=== PATIENT | female | born 1990 | race Caucasian/White ===

== ENCOUNTER → 2016-11-05 | Outpatient (CLI) | payer BC | END | disposition home or self-care (01) | LOC: C.PATHSPEC 11:44 | PROVIDERS: ATTEND Dentist Oral and Maxillofacial Surgery | DX: K09.0 Developmental odontogenic cysts (principal) ==

== ENCOUNTER → 2016-12-10 | Outpatient (CLI) | payer BC ==
[2016-12-10 18:25] LABS: URINE APPEARANCE TURBID (CLEAR); URINE BILIRUBIN NEG (NEG); URINE COLOR YELLOW; URINE EPITHELIAL CELL AUTO >30 /lpf (0-5); URINE NITRITE NEG (NEG); URINE PH 7.5 (4.5-7.5); UROBILINOGEN NEG (NEG)
[2016-12-10 18:31] LABS: MANUAL MICROSCOPIC REQUIRED? NO; REVIEW REQ? NO
== END | disposition home or self-care (01) ==
LOC: C.LABSPEC 17:42
PROVIDERS: ATTEND Obstetrics & Gynecology
DX: Z34.01 Encounter for supervision of normal first pregnancy, first trimester (principal)

== ENCOUNTER → 2016-12-14 | Outpatient (CLI) | payer BC ==
[2016-12-14 17:31] LABS: BASO % 0.2 %; BASO ABS # 0.02 K/uL (0-0.2); COMPLETE YES; EOS % 1.9 %; HEMATOCRIT 40.8 % (37-47); IG% 0.2 %; LYMPH % 32.2 %; LYMPH ABS # 3.41 K/uL (1.2-3.4); MEAN CELL VOLUME 87.9 fL (80-100); MEAN CORPUSCULAR HGB CONC 34.1 g/dl (32-36); MEAN PLATELET VOLUME 9.7 fL (7.4-10.4); MONO % 6.3 %; NEUT % 59.2 %; PLATELET COUNT 229 K/uL (130-400); RED BLOOD COUNT 4.64 M/uL (4.2-5.4); WHITE BLOOD COUNT 10.59 K/uL (4.8-10.8)
[2016-12-17 00:58] LABS: CHLAMYDIA TRACH RNA*** NOT DETECTED (NOT DETECTED); GC (NEIS GONORRHOEAE)RNA** NOT DETECTED (NOT DETECTED)
== END | disposition home or self-care (01) ==
LOC: C.LAB1850 16:07
PROVIDERS: ATTEND Obstetrics & Gynecology
DX: Z34.01 Encounter for supervision of normal first pregnancy, first trimester (principal)

== ENCOUNTER → 2017-01-11 | Outpatient (CLI) | payer BC ==
[2017-01-11 17:59] LABS: GTGD 50 Grams
== END | disposition home or self-care (01) ==
LOC: C.LAB1850 16:56
PROVIDERS: ATTEND Obstetrics & Gynecology
DX: Z34.01 Encounter for supervision of normal first pregnancy, first trimester (principal)

== ENCOUNTER → 2017-04-05 | Outpatient (CLI) | payer BC, OTHER ==
[2017-04-05 15:30] LABS: GTGD 50 Grams
[2017-04-05 15:38] LABS: HEMATOCRIT 35.7 % (37-47)
[2017-04-05 16:03] LABS: URINE APPEARANCE CLEAR (CLEAR); URINE BILIRUBIN NEG (NEG); URINE COLOR YELLOW; URINE EPITHELIAL CELL AUTO 20-30 /lpf (0-5); URINE NITRITE NEG (NEG); URINE PH 6.5 (4.5-7.5); UROBILINOGEN NEG (NEG)
[2017-04-05 16:12] LABS: MANUAL MICROSCOPIC REQUIRED? NO; REVIEW REQ? NO
== END | disposition home or self-care (01) ==
LOC: C.LAB1850 14:36
PROVIDERS: ATTEND Obstetrics & Gynecology
DX: Z34.03 Encounter for supervision of normal first pregnancy, third trimester (principal)

== ENCOUNTER → 2017-04-15 | Outpatient (CLI) | payer BC, OTHER | END | disposition home or self-care (01) | LOC: C.LAB 07:47 | PROVIDERS: ATTEND Obstetrics & Gynecology | DX: O28.1 Abnormal biochemical finding on antenatal screening of mother (principal) ==

== ENCOUNTER → 2017-04-22 | Outpatient (CLI) | payer BC, OTHER | END | disposition home or self-care (01) | LOC: C.LAB1850 13:21 | PROVIDERS: ATTEND Obstetrics & Gynecology | DX: O28.1 Abnormal biochemical finding on antenatal screening of mother (principal); Z3A.00 Weeks of gestation of pregnancy not specified ==

== ENCOUNTER → 2017-05-19 | Outpatient (CLI) | payer BC, OTHER ==
[2017-05-19 17:20] LABS: BASO % 0.1 %; BASO ABS # 0.01 K/uL (0-0.2); COMPLETE YES; EOS % 0.9 %; HEMATOCRIT 38.1 % (37-47); IG% 0.6 %; LYMPH % 27.4 %; LYMPH ABS # 3.45 K/uL (1.2-3.4); MEAN CELL VOLUME 90.5 fL (80-100); MEAN CORPUSCULAR HEMOGLOBIN 30.6 pg (25-34); MEAN CORPUSCULAR HGB CONC 33.9 g/dl (32-36); MEAN PLATELET VOLUME 9.8 fL (7.4-10.4); MONO % 9.4 %; NEUT % 61.6 %; PLATELET COUNT 217 K/uL (130-400); RED BLOOD COUNT 4.21 M/uL (4.2-5.4); WHITE BLOOD COUNT 12.57 K/uL (4.8-10.8)
[2017-05-19 17:39] LABS: ALT/SGPT 21 U/L (12-78); BLOOD UREA NITROGEN 8 mg/dl (7-18); BUN/CREATININE RATIO 11.9 (10-20); CALCIUM 9.3 mg/dl (8.5-10.1); CARBON DIOXIDE 25 mmol/L (21-32); CHLORIDE 105 mmol/L (98-107); CREATININE 0.65 mg/dl (0.60-1.20); GLUCOSE 72 mg/dl (70-99); POTASSIUM 3.6 mmol/L (3.5-5.1); SODIUM 137 mmol/L (136-145)
[2017-05-19 17:42] LABS: ALB/GLOB RATIO 0.7 (0.9-2); ALKALINE PHOSPHATASE 121 U/L (45-117); AST/SGOT 17 U/L (15-37)
== END | disposition home or self-care (01) ==
LOC: C.LAB1850 16:23
PROVIDERS: ATTEND Obstetrics & Gynecology
DX: O16.3 Unspecified maternal hypertension, third trimester (principal); Z3A.00 Weeks of gestation of pregnancy not specified

== ENCOUNTER → 2017-05-21 | Outpatient (CLI) | payer BC, OTHER ==
[~2017-05-21] MED LIST: PRENTAB26 PO
== END | disposition home or self-care (01) ==
LOC: C.LAB 08:51
PROVIDERS: ATTEND Obstetrics & Gynecology
DX: O16.3 Unspecified maternal hypertension, third trimester (principal)

== ENCOUNTER → 2017-05-24 | Outpatient (CLI) | payer BC, OTHER ==
[2017-05-24 13:36] LABS: ALBUMIN 2.8 gm/dl (3.4-5.0); ALT/SGPT 20 U/L (12-78); AST/SGOT 17 U/L (15-37); CREATININE 0.66 mg/dl (0.60-1.20); URIC ACID 4.3 mg/dl (2.6-7.2)
[2017-05-24 13:39] LABS: ALKALINE PHOSPHATASE 130 U/L (45-117); TOTAL PROTEIN 7.1 gm/dl (6.4-8.2)
== END | disposition home or self-care (01) ==
LOC: C.LAB1850 11:43
PROVIDERS: ATTEND Obstetrics & Gynecology
DX: O13.3 Gestational [pregnancy-induced] hypertension without significant proteinuria, third trimester (principal)

== ENCOUNTER → 2017-05-31 | Outpatient (CLI) | payer BC, OTHER ==
[2017-05-31 12:18] LABS: HEMOGLOBIN 12.8 g/dL (12.0-16.0); MEAN CELL VOLUME 90.3 fL (80-100); MEAN CORPUSCULAR HEMOGLOBIN 30.4 pg (25-34); MEAN CORPUSCULAR HGB CONC 33.7 g/dl (32-36); MEAN PLATELET VOLUME 10.2 fL (7.4-10.4); PLATELET COUNT 179 K/uL (130-400); RED CELL DISTRIBUTION WIDTH CV 13.2 % (11.5-14.5); RED CELL DISTRIBUTION WIDTH SD 42.9 fL (36.4-46.3); WHITE BLOOD COUNT 10.99 K/uL (4.8-10.8)
[2017-05-31 16:36] LABS: ALBUMIN 2.8 gm/dl (3.4-5.0); ALT/SGPT 19 U/L (12-78); BLOOD UREA NITROGEN 8 mg/dl (7-18); CARBON DIOXIDE 24 mmol/L (21-32); CREATININE 0.68 mg/dl (0.60-1.20); GLUCOSE 67 mg/dl (70-99); POTASSIUM 3.7 mmol/L (3.5-5.1); SODIUM 137 mmol/L (136-145)
[2017-05-31 16:39] LABS: ALKALINE PHOSPHATASE 127 U/L (45-117); AST/SGOT 17 U/L (15-37); TOTAL PROTEIN 6.9 gm/dl (6.4-8.2)
== END | disposition home or self-care (01) ==
LOC: C.LAB1850 11:05
PROVIDERS: ATTEND Obstetrics & Gynecology
DX: O13.3 Gestational [pregnancy-induced] hypertension without significant proteinuria, third trimester (principal)

== ENCOUNTER 2017-06-08 08:21 | Inpatient (IN) | payer BC, OTHER ==
[~2017-06-08] VITALS: Ht 167.6 cm; Wt 79.5 kg
[2017-06-08] MEDS ORDERED: PRENTAB26 PO (08:29)
[2017-06-08 08:33] VITALS: Ht 167.6 cm; Wt 79.5 kg
[2017-06-08] MEDS ORDERED: LACTATED RINGER'S 1000ML 1,000 ML IV SCH ×2 (08:47→13:45)
[2017-06-08] MEDS ORDERED: LACTATED RINGER'S 1000ML 1,000 ML IV PRN (08:47)
[2017-06-08] MEDS ORDERED: LACTATED RINGER'S 1000ML 500 ML IV PRN (08:52)
[2017-06-08] MEDS ORDERED: OXYTOCIN 30 UNITS/500ML NSS IV PRN ×2 (09:00→13:45)
[2017-06-08 09:17] LABS: HEMATOCRIT 37.9 % (37-47); HEMOGLOBIN 12.9 g/dL (12.0-16.0); MEAN CELL VOLUME 90.2 fL (80-100); MEAN CORPUSCULAR HEMOGLOBIN 30.7 pg (25-34); MEAN PLATELET VOLUME 9.8 fL (7.4-10.4); PLATELET COUNT 183 K/uL (130-400); RED CELL DISTRIBUTION WIDTH CV 13.4 % (11.5-14.5); RED CELL DISTRIBUTION WIDTH SD 43.8 fL (36.4-46.3); WHITE BLOOD COUNT 11.95 K/uL (4.8-10.8)
--- NOTE | 2017-06-08 13:41 | Vaginal Delivery Summary ---
Vaginal Delivery Summary Lisa became fully dilated with an urge to push and was coached through her second stage. I was called to deliver when the head began . Lisa was prepped for delivery and through the next few pushes she delivered the head in DOA position, followed rapidly by the shoulders and the remainder of the infant. A vigorous male was placed on the maternal abdomen, cord was doubly clamped and cut by the FOB. Placenta delivered spontaneously and was intact with a 3VC. First degree perineal laceration was repaired with 1% plain lidocaine and 3-0 vicryl in a running locked manner.
[2017-06-08] MEDS ORDERED: HYDROCORTISONE ACETATE 25 MG SUPP PR PRN (13:45)
[2017-06-08] MEDS ORDERED: MEASLES, MUMPS & RUBELLA VIRUS VIAL SQ. ONE (13:45)
[2017-06-08] MEDS ORDERED: ACETAMINOPHEN 325 MG TAB PO PRN (13:45)
[2017-06-08] MEDS ORDERED: BENZOCAINE 20% AER SPR 82.5 GM CAN EXT PRN (13:45)
[2017-06-08] MEDS ORDERED: DIPHTHERIA/TETANUS/PERTUSSIS 0.5 ML SYR/VIAL IM. ONE (13:45)
[2017-06-08] MEDS ORDERED: OXYCODONE/ACETAMINOPHEN 5-325 TAB PO PRN (13:45)
[2017-06-08] MEDS ORDERED: LANOLIN OINT EXT PRN (13:45)
[2017-06-08] MEDS ORDERED: SUPERCREAM 0.870 % 15GM JAR EXT PRN (13:45)
[2017-06-08] MEDS ORDERED: IBUPROFEN 600 MG TAB PO PRN (13:45)
--- NOTE | 2017-06-08 13:49 | Medical Student: [facility] ---
Medical Student Delivery Note Lisa Kennedy is a 26 yo white female now 1 with EDC of 06/29/2017 as estimated by US. She was schedule for induction at 37 weeks for gestational hypertension, with weekly labs/NSTs starting at 35 weeks. Her labs showed blood type O+, rubella immune, HepB negative, declined genetic testing, negative GBS titer, normal glucose screen at 28 weeks (154). Patient was a planned induction for today with pitocin (9). She pushed for approximately 10 minutes, delivering a viable male infant occiput anterior position at 1323 over intact perineum. Infant placed on the mother's abdomen for drying and attention. Umbilical cord was clamped in 2 places and cut. Cord blood sample was obtained. Placenta was delivered spontaneously and intact. Perineum inspection showed a 2 cm first degree midline posterior laceration, which was stitched closed with 3-0 Vicryl. EBL was 300ml. Sponge , instrument, and needle count was correct x2. Vigorous male infant's Apgars were 10 (1 minute) and 10 (5 minute); weight is pending. Mother and baby are doing well and recovering together.
[2017-06-08 16:30] VITALS: BP 114/73; PULSE 93; TEMP 37; O2SAT 96
[2017-06-08 19:15] VITALS: BP 132/84; PULSE 90; TEMP 36.8; O2SAT 97
[2017-06-08] MEDS: DOCUSATE SODIUM 100 MG CAP PO SCH (20:08)
[2017-06-09 00:50] VITALS: BP 132/84; PULSE 75; TEMP 36.5
[2017-06-09 05:25] VITALS: BP 120/78; PULSE 80; TEMP 36.8
--- NOTE | 2017-06-09 06:08 | Medical Student: [facility] ---
Med Student BUSINESS SALES CONSULTANT Progress Nt Date of Service Jun 09, 2017. Subjective conversation w/ patient, physical exam Ambulation: ambulating normally Voiding: no voiding problems Passing Gas: Yes Diet Tolerance: Regular Diet Lochia: Moderate Feeding Type: Breast Feeding Pain: minimal, no pain meds Notes: Doing well, requests for help with latch/breast feeding. She reports she is hand expressing, but baby only tries to suck 2x then falls asleep. Review of Systems Constitutional: No fever, No chills Respiratory: No cough, No shortness of breath Cardiac: No chest pain, No edema, No palpitations Abdomen: No nausea, No vomiting, No diarrhea Female : No dysuria No blurry vision, headache, or RUQ pain Objective Vital Signs Date Time Temp Pulse Resp B/P (MAP) Pulse Ox O2 Delivery O2 Flow Rate FiO2 06/09/17 05:25 36.8 80 16 120/78 (92) Room Air 06/09/17 00:50 Room Air 06/09/17 00:50 36.5 75 16 132/84 (100) Room Air 06/08/17 19:15 36.8 90 18 132/84 (100) 97 Room Air 06/08/17 16:30 96 Room Air 06/08/17 16:30 37.0 93 20 114/73 (87) 96 Room Air Physical Exam General Appearance: WELL-APPEARING, WD/WN, NO APPARENT DISTRESS Respiratory/Chest: lungs clear, normal breath sounds Cardiovascular: regular rate, rhythm, no edema, no murmur Abdomen: soft Fundus: Firm, Relation to Umbilicus (1 fingerbreath below umbilicus) Laboratory Results Last 24 Hours Test 06/08/17 09:06 06/09/17 04:44 White Blood Count 11.95 K/uL Red Blood Count 4.20 M/uL Hemoglobin 12.9 g/dL Hematocrit 37.9 % Mean Corpuscular Volume 90.2 fL Mean Corpuscular Hemoglobin 30.7 pg Mean Corpuscular Hemoglobin Concent 34.0 g/dl RDW Standard Deviation 43.8 fL RDW Coefficient of Variation 13.4 % Platelet Count 183 K/uL Mean Platelet Volume 9.8 fL Assessment and Plan Post- Day Number: 1 Continue Routine Care: 26 female now 1 PPD1, GBS-/O+/RI Vitals reviewed, stable and WNL. Hgb 12.9 at admission, pending today. She is having difficulty with and requests support at next feeding from nursing. Would also like to see Maddison if possible. Plan; 1. Continue recovery from vaginal delivery and post care, encourage ambulation, support breast feeding, control pain, monitor lochia.
[2017-06-09 07:45] VITALS: BP 135/82; PULSE 83; TEMP 36.8; O2SAT 97
--- NOTE | 2017-06-09 07:50 | OB/GYN Progress Note ---
LABORATORY SUPERVISOR Progress Note Date of Service Jun 09, 2017. Subjective conversation w/ patient, physical exam, chart review, lab review Ambulation: ambulating normally Voiding: no voiding problems Passing Gas: Yes Diet Tolerance: Regular Diet Lochia: Moderate Feeding Type: Breast Feeding Review of Systems Constitutional: No fever Respiratory: No cough, No shortness of breath Cardiac: No chest pain Abdomen: No pain, No nausea, No vomiting Female : No dysuria Objective Vital Signs Date Time Temp Pulse Resp B/P (MAP) Pulse Ox O2 Delivery O2 Flow Rate FiO2 06/09/17 05:25 36.8 80 16 120/78 (92) Room Air 06/09/17 00:50 Room Air 06/09/17 00:50 36.5 75 16 132/84 (100) Room Air 06/08/17 19:15 36.8 90 18 132/84 (100) 97 Room Air 06/08/17 16:30 96 Room Air 06/08/17 16:30 37.0 93 20 114/73 (87) 96 Room Air Physical Exam General Appearance: WELL-APPEARING, WD/WN, NO APPARENT DISTRESS Respiratory/Chest: lungs clear, normal breath sounds Cardiovascular: regular rate, rhythm, no murmur Abdomen: normal bowel sounds Fundus: Firm Extremities: no pedal edema, no calf tenderness Laboratory Results Last 24 Hours Test 06/08/17 09:06 06/09/17 04:44 White Blood Count 11.95 K/uL Red Blood Count 4.20 M/uL Hemoglobin 12.9 g/dL Hematocrit 37.9 % Mean Corpuscular Volume 90.2 fL Mean Corpuscular Hemoglobin 30.7 pg Mean Corpuscular Hemoglobin Concent 34.0 g/dl RDW Standard Deviation 43.8 fL RDW Coefficient of Variation 13.4 % Platelet Count 183 K/uL Mean Platelet Volume 9.8 fL Assessment and Plan Post- Day Number: 1 Continue Routine Care: 26 female now 1 PPD1, GBS-/O+/RI PMH of [place], Vitals reviewed, stable and WNL. Patient is doing well. Plan; 1. continue pp care; ambulate, monitor lochia, support BF, control 2. Monitor serial BP. Have been stable overnight. Resident Physician Supervision Note: I was present with Dr. Cagle during the history and exam. I discussed the case with the resident and agree with the findings and plan as documented in the note. Any exceptions or clarifications are listed here: [None] Documented By: Eloina Hussein
[2017-06-09 08:22] LABS: HEMATOCRIT 37.9 % (37-47); HEMOGLOBIN 12.7 g/dL (12.0-16.0)
[2017-06-09] MEDS: PRENATAL VITAMIN TAB PO SCH (08:37)
[2017-06-09] MEDS: DOCUSATE SODIUM 100 MG CAP PO SCH ×2 (08:37→20:09)
[2017-06-09 12:00] VITALS: BP 131/80; PULSE 94; TEMP 36.9; O2SAT 96
[2017-06-09 16:15] VITALS: BP 125/84; PULSE 92; TEMP 36.7; O2SAT 96
[2017-06-09 23:30] VITALS: BP 122/78; PULSE 87; TEMP 36.8
--- NOTE | 2017-06-10 06:01 | Discharge Instructions ---
Discharge Instructions Date of Service Jun 10, 2017. Admission Reason for Admission: Induction Discharge Discharge Diagnosis / Problem: vaginal delivery Discharge Goals Goal(s): Routine recovery after delivery Medications Continue Dispensed Medications: supercream, dermaplast, tucks, lansinoh Activity Recommendations Activity Limitations: per Instructions/Follow-up section . Instructions / Follow-Up Instructions / Follow-Up ACTIVITY RECOMMENDATIONS: * Gradual return to full activity over the next 2-3 weeks. * No lifting - nothing heavier than baby over the next 2-3 weeks. * Do not engage in vigorous exercise, sexual activity or sports until cleared by your physician. * Do not drive or operate any motorized equipment until cleared by your physician. * You may shower/bathe daily. MEDICATIONS: For discomfort or pain, you may use Acetaminophen (Tylenol), Ibuprofen (Advil), or Naproxen (Aleve) following the package directions. For constipation you may use Colace following the package directions. BREAST CARE: If you are not breast feeding: * Wear a supportive bra 24 hours a day for one to two weeks. * Avoid stimulating your breasts and nipples as much as possible during the first few weeks after delivery. * When taking a shower, have the warm water hit your back, not breasts. * When your breasts feel full, apply ice packs. Usually three to four times a day helps ease the discomfort. * Take a mild pain medication (Tylenol / Motrin) when you are uncomfortable. If breast feeding: * Use breast milk to lubricate nipples. Lansinoh cream may be used for sore nipples. You do not need to remove cream prior to breast feeding. If using a different brand of cream, check the label for directions regarding removal of cream prior to nursing. * Wear a supportive bra. * If having problems with breasts or breast feeding, call a marine engineering consultant or your health care provider. EPISIOTOMY CARE: After delivery, if you have an episiotomy (stitches), the following steps will ease discomfort and aid healing. * For the first 24 hours after delivery, place ice packs next to your episiotomy to help reduce swelling. * After the first 24 hour-period, sitz baths, either portable or in the tub, are suggested. A shower with a shower arm sprayed over the episiotomy may be comforting. * Echo care should be done after each voiding and bowel movement. Squirt warm water from a plastic bottle over the perineum (region of the body between the anus and urinary opening) and pat dry. * Use Dermoplast to ease discomfort. Shake container. [place] directly over the episiotomy. Place a Tucks on a clean sanitary pad next to your episiotomy. SPECIAL CARE INSTRUCTIONS: When you are discharged from the hospital, it is important for you to follow the instructions listed below: * During the first week at home, you should be able to care for yourself and your baby. In addition, the usual light household activities are encouraged. * Limit your activities to the way you feel. Do not try to clean the house or move furniture. Be sensible. * If you actively engage in sports and have done so up until the time of your delivery, you may resume these activities as soon as you feel able. This may take up to one month or even longer. Use good judgment. * Continue to take your vitamins for at least six weeks after the of your baby. * Your diet need not be limited unless you were on a special diet before your delivery. Breast-feeding mothers need around 2500 calories per day and at least 64-80 ounces of fluid per day (8 to 10 glasses). * You should eat foods from the four major food groups. Crash diets or fad diets are to be avoided. Eating lean meats, fresh fruits and vegetables, low-fat dairy products, high fiber foods and a regular exercise program, will help you get back to your pre- weight without putting your health at risk. * Constipation is sometimes a problem after delivery. Take a mild laxative as needed. If breast feeding, Milk of Magnesia is acceptable to use. You may use a suppository or Fleets enema if no episiotomy. * A daily shower or tub bath is suggested. Be sure to thoroughly and gently dry the perineum. * A bloody vaginal discharge will usually continue until around four weeks post . A small amount of bleeding may continue for as long as six weeks. Vaginal discharge changes from the bright red bleeding after delivery to pink then brownish and finally yellowish-pink before becoming white and disappearing. * Bleeding may increase with activity. Your first period may come in 4-8 weeks. If you are breast feeding, your period may be delayed even longer. * Doyle (sex) can begin whenever both you and your partner feel comfortable and do not have any form of genital infection. It is recommended that you wait at least six weeks for internal and external healing to occur. If you have questions, please talk to your health care practitioner. A condom should be used to prevent infection and . * Foreplay, gentle intercourse and lubrication is very important the first several times to prevent pain. A water-based lubricant such as K-Y jelly or Astroglide may be used. * If you have RH negative blood and your baby is RH positive, you will receive RHOGAM by injection prior to discharge. The nurse will give you a card to keep with you that has the date and place that you received RHOGAM after delivery. * During your care, you had a Rubella screen done to check for the presence of rubella antibodies in your blood. If your test was negative, you will receive a Rubella vaccine prior to discharge. This vaccine may cause a fever, soreness at the injection site and flu-like symptoms. If these symptoms persist, notify your health care practitioner. is not advised for one month after a Rubella vaccine. * Verbalizes understanding of car seat law as reviewed with patient nursing. * Car Seat hand-out given and reviewed with patient by nursing. * Shaken baby information reviewed with patient by nursing. Call you doctor if: * Heavy bleeding (saturating several pads an hour) or passing clots the size of your fist. * A fever >101 degrees F (38.3 degrees C) on two occasions four hours apart and /or chills. * Unusual pain in the pelvic or vaginal areas. * "Baby Blues" lasting longer than two weeks. If you have any questions or concerns, call your health care practitioner at . FOLLOW UP VISIT: * Please call the office at to schedule a 6 week examination. It is important you keep this appointment. It is important for you to make arrangements for either yearly or twice yearly check-ups thereafter. Current Hospital Diet Patient's current hospital diet: Regular OB Diet Discharge Diet Recommended Diet: Regular OB Diet Pending Studies Studies pending at discharge: no Medical Emergencies . Who to Call and When: Medical Emergencies: If at any time you feel your situation is an emergency, please call 911 immediately. . Non-Emergent Contact Non-Emergency issues call your: Fishing Tool Technician [employer] . . "Provider Documentation" section prepared by Jayme Cagle. . VTE Core Measure Inpt VTE Proph given/why not?: Treatment not indicated
--- NOTE | 2017-06-10 06:33 | Medical Student: [facility] ---
Med Student KNITTING MACHINE MECHANIC Progress Nt Date of Service Jun 10, 2017. Subjective conversation w/ patient, physical exam, lab review Ambulation: ambulating normally Voiding: no voiding problems Passing Gas: Yes Diet Tolerance: Regular Diet Lochia: Small (tailing off) Feeding Type: Breast Feeding Pain: Patient denies pain Notes: upon exam, going well. She has no complaints and is ready to go home. Review of Systems Constitutional: No fever, No chills Respiratory: No cough, No shortness of breath Cardiac: No chest pain, No edema, No palpitations Abdomen: No pain, No nausea, No vomiting, No diarrhea Female : No dysuria Objective Vital Signs Date Time Temp Pulse Resp B/P (MAP) Pulse Ox O2 Delivery O2 Flow Rate FiO2 06/09/17 23:30 36.8 87 18 122/78 (93) Room Air 06/09/17 23:30 Room Air 06/09/17 16:15 36.7 92 18 125/84 (98) 96 Room Air 06/09/17 16:15 96 Room Air 06/09/17 12:00 36.9 94 18 131/80 (97) 96 Room Air 06/09/17 07:45 36.8 83 20 135/82 (99) 97 Room Air 06/09/17 07:45 97 Room Air Physical Exam General Appearance: WELL-APPEARING, WD/WN, NO APPARENT DISTRESS Respiratory/Chest: lungs clear, normal breath sounds Cardiovascular: regular rate, rhythm, no edema, no murmur Abdomen: soft Fundus: Firm, Relation to Umbilicus (at umbilicus) Extremities: non-tender, no pedal edema, no calf tenderness Laboratory Results Last 24 Hours Test 06/09/17 08:03 Hemoglobin 12.7 g/dL Hematocrit 37.9 % Assessment and Plan Post- Day Number: 2 Continue Routine Care: Resident Physician Supervision Note: I was present with Dr. Alvina Cagle during the history and exam. I discussed the case with the resident and agree with the findings and plan as documented in the note. Any exceptions or clarifications are listed here: [None] Documented By: Kary Mercado 26 female now 1 PPD2, GBS-/O+/RI Vitals reviewed, stable and WNL. Hgb 12.9 at admission, 12.7 (06/09). Doing much better with today. Pain with wiping after urinating has improved. She has no complaints, and is in agreement with discharge home today. Plan; 1. Continue recovery from vaginal delivery and post care, encourage ambulation, support breast feeding, control pain if she has any, monitor lochia to make sure still trailing off. Discharge home planned for today, initial instructions given at bedside.
--- NOTE | 2017-06-10 06:49 | OB/GYN Progress Note ---
COSTUME TECHNICIAN Progress Note Date of Service Jun 10, 2017. Subjective conversation w/ patient, conversation w/ family, physical exam, chart review, lab review Ambulation: ambulating normally Voiding: no voiding problems Passing Gas: Yes Diet Tolerance: Regular Diet Lochia: Small Feeding Type: Breast Feeding Review of Systems Constitutional: No fever, No chills Respiratory: No cough, No shortness of breath Cardiac: No chest pain Abdomen: No pain, No nausea, No vomiting Female : No dysuria Objective Vital Signs Date Time Temp Pulse Resp B/P (MAP) Pulse Ox O2 Delivery O2 Flow Rate FiO2 06/09/17 23:30 36.8 87 18 122/78 (93) Room Air 06/09/17 23:30 Room Air 06/09/17 16:15 36.7 92 18 125/84 (98) 96 Room Air 06/09/17 16:15 96 Room Air 06/09/17 12:00 36.9 94 18 131/80 (97) 96 Room Air 06/09/17 07:45 36.8 83 20 135/82 (99) 97 Room Air 06/09/17 07:45 97 Room Air Physical Exam General Appearance: WELL-APPEARING, WD/WN, NO APPARENT DISTRESS Respiratory/Chest: lungs clear, normal breath sounds Cardiovascular: regular rate, rhythm Abdomen: non tender, soft Fundus: Firm Extremities: no pedal edema, no calf tenderness Laboratory Results Last 24 Hours Test 06/09/17 08:03 Hemoglobin 12.7 g/dL Hematocrit 37.9 % Assessment and Plan Post- Day Number: 2 Continue Routine Care: Resident Physician Supervision Note: I was present with Dr. Bessie Cagle during the history and exam. I discussed the case with the resident and agree with the findings and plan as documented in the note. Any exceptions or clarifications are listed here: [None] Documented By: Kary Mercado 26 female now 1 PPD2, GBS-/O+/RI PMH of [place], Vitals reviewed, stable and WNL. Patient is doing well. Plan; 1. continue pp care; ambulate, monitor lochia, support BF, control pain 2. Monitor serial BP. Have been stable overnight. 3. Discussed Dc instructions with the patient. Planning to dc today.
[2017-06-10 07:36] VITALS: BP 142/88; PULSE 91; TEMP 36.8; O2SAT 97
[2017-06-10] MEDS: PRENATAL VITAMIN TAB PO SCH (08:01)
[2017-06-10] MEDS: DOCUSATE SODIUM 100 MG CAP PO SCH (08:01)
[2017-06-10 12:00] VITALS: BP 129/84; PULSE 86; TEMP 36.5; O2SAT 97
[2017-06-10 15:05] VITALS: BP_DIAS 84; PULSE 86; TEMP 36.5
== END 2017-06-10 15:10 | disposition home or self-care (01) | DRG 775 ==
LOC: C.LD 08:21 → C.OBG 16:07
PROVIDERS: ADMIT Obstetrics & Gynecology; ATTEND Obstetrics & Gynecology
PROC: 3E033VJ Introduction of Other Hormone into Peripheral Vein, Percutaneous Approach (ICD-10-PCS; principal; 2017-06-08)
PROC: 10E0XZZ Delivery of Products of Conception, External Approach (ICD-10-PCS; principal; 2017-06-08)
PROC: 0HQ9XZZ Repair Perineum Skin, External Approach (ICD-10-PCS; principal; 2017-06-08)
DX: O13.4 Gestational [pregnancy-induced] hypertension without significant proteinuria, complicating childbirth (principal); O70.0 First degree perineal laceration during delivery; Z3A.37 37 weeks gestation of pregnancy; Z37.0 Single live birth

== ENCOUNTER → 2017-07-14 | Outpatient (CLI) | payer BC | END | disposition home or self-care (01) | LOC: C.PAPS 09:11 | PROVIDERS: ATTEND Obstetrics & Gynecology | DX: R87.612 Low grade squamous intraepithelial lesion on cytologic smear of cervix (LGSIL) (principal); Z11.51 Encounter for screening for human papillomavirus (HPV) ==

== ENCOUNTER 2019-03-01 01:05 | Inpatient (IN) ==
[2019-03-01] MEDS ORDERED: OXYTOCIN 30 UNITS/500 ML BAG IV PRN ×2 (01:23→03:27)
[2019-03-01] MEDS ORDERED: LACTATED RINGER'S 1,000 ML IV PRN (01:23)
--- NOTE | 2019-03-01 01:29 | History & Physical Report ---
Date of Service March 01, 2019 Assessment & Plan (1) : Admit to L&D. IV fluids. Labs. EFM/toco. Does not plan for epidural. History of Present Illness Chief Complaint: labor Primary Care Provider: NO PCP 28yo @ 37 0/7 presents with regular contractions, worsening over the past 24h. + movement. No vaginal bleeding or leaking of fluid. uncomplicated. Allergies Allergy/AdvReac Type Severity Reaction Status Date / Time No Known Drug Allergies Allergy Verified 02/22/19 11:08 Home Medications Home Medications Medication Instructions Recorded Confirmed Type 1 tab PO DAILY 12/18/18 02/22/19 History vitamin,calcium,[id number] acid tablet Patient History Family History Aunt Cervical cancer paternal Mother Thyroid disease Sister Thyroid disease Social History marital status: Current Living Situation: Family Current Living Situation Comment: spouse, son, 1 dog, 2 cats Smoking Status: Never smoker Hx Alcohol Use: No Review of Systems All systems reviewed & are unremarkable except as noted in HPI & below Physical Exam Constitutional: WD/WN, vitals as above Respiratory: normal respiratory effort, lungs clear to auscultation no respiratory distress Cardiovascular: Rate/Rhythm: regular rate and regular rhythm Gastrointestinal (Abdomen): Inspection/Auscultation: abdomen normal to inspection Percussion/Palpation: abdomen soft; abdomen nontender Gravid. No s/s chorio or abruption. Skin: no rashes, warm and dry Psychiatric: A+Ox3, euthymic affect Results & Data Vital Signs (Past 12 Hours) Vital Signs Pulse BP 03/01/19 01:15 78 158/96 H Monitoring External Monitor FHT Cat 1 [place] Q 4-5
[2019-03-01 01:46] LABS: Hemoglobin 14.4 g/dL (12.0-16.0); Mean Corpuscular Hemoglobin 30.2 pg (25-34); Mean Corpuscular Volume 88.1 fL (80-100); Mean Platelet Volume 10.8 fL (7.4-10.4); Platelet Count 205 K/uL (130-400); RDW Coefficient of Variation 13.3 % (11.5-14.5); RDW Standard Deviation 42.8 fL (36.4-46.3); Red Blood Count 4.77 M/uL (4.2-5.4); White Blood Count 11.44 K/uL (4.8-10.8)
[2019-03-01 01:50] LABS: Mean Corpuscular Hgb Conc 34.3 g/dL (32-36)
[2019-03-01 02:07] LABS: Albumin Level 2.9 gm/dl (3.4-5.0); BUN Creatinine Ratio 9.2 (10-20); Creatinine Clr Calc Pharmacy 113.8 ml/min; Est GFR (African American) 119.7; Est GFR (Non-African American) 103.3; Potassium 3.7 mmol/L (3.5-5.1)
[2019-03-01 02:09] LABS: Albumin Globulin Ratio 0.7 (0.9-2); Bilirubin,Total 0.3 mg/dl (0.2-1); Globulin 4.2 gm/dl (2.5-4.0); Total Protein 7.1 gm/dl (6.4-8.2)
--- NOTE | 2019-03-01 03:20 | Delivery Summary ---
Vaginal Delivery Summary Date of Service March 01, 2019 Vaginal Delivery Summary Vaginal Delivery Summary: Pre-delivery diagnoses: 28yo @ 37 0/7, spontaneous labor Post-delivery diagnoses: same Procedure: spontaneous vaginal delivery, repair of 1st degree perineal laceration Surgeon: Joslyn Lima DO Complications: none Findings: Viable male . Apgars: 8/9 . Weight pending, please see nursery records Estimated blood loss: 300ml Description of delivery: The patient progressed to complete without anesthesia. She then began to push. She spontaneously vaginally delivered a viable from the cephalic presentation. The head delivered in BRADY position. The anterior shoulder delivered, followed by the posterior shoulder, followed by the body. No nuchal cord. The baby was placed on mother's abdomen and a spontaneous cry was heard. Delayed cord clamping was employed, and the cord was doubly clamped and cut. Cord blood was obtained. The placenta was delivered spontaneously intact with a 3-vessel cord. The uterus and vagina were swept of clots and debris. IV pitocin was given. The uterus became firm. The cervix, vagina, and perineum were inspected and a 1st degree perineal lacerations was noted. 1% lidocaine used for local anesthetic. Laceration repaired in standard fashion with 3-0 vicryl. Excellent hemostasis was observed. The mother and baby are recovering in stable and good condition in the room. Sponge, needle, and instrument counts were correct x 2. Joslyn Lima DO [facility] [place]
[2019-03-01] MEDS ORDERED: SUPERCREAM 0.870% 15 GM JAR EXT PRN (03:27)
[2019-03-01] MEDS ORDERED: DIPHTHERIA/TETANUS/PERTUSSIS 0.5 ML SYR/VIAL IM ONE (03:27)
[2019-03-01] MEDS ORDERED: HYDROCORTISONE ACETATE 25 MG SUPP PR PRN (03:27)
[2019-03-01] MEDS ORDERED: bisacodyL 10 MG SUPP PR PRN (03:27)
[2019-03-01] MEDS ORDERED: BENZOCAINE 20% AER SPR 82.5 GM CAN EXT PRN (03:27)
[2019-03-01] MEDS ORDERED: OXYCODONE/ACETAMINOPHEN 5mg/325mg TAB PO PRN (03:27)
[2019-03-01] MEDS ORDERED: ACETAMINOPHEN 325 MG TAB PO PRN (03:27)
[2019-03-01] MEDS: DOCUSATE SODIUM 100 MG CAP PO SCH ×2 (07:53→21:14)
[2019-03-01] MEDS: PRENATAL VITAMIN 1 TAB PO SCH (07:53)
[2019-03-01] MEDS ORDERED: NON-FORMULARY MEDICATION (Prenat.Vits,Cal,Min-Iron-Folic 1 TAB) PO SCH (09:00)
[2019-03-02] MEDS: IBUPROFEN 600 MG TAB PO PRN ×2 (06:02→13:55)
--- NOTE | 2019-03-02 06:42 | Obstetrical Progress Note ---
Date of Service March 02, 2019 Assessment & Plan (1) : 28 yo s/p VD @ 37 weeks -PPD# 1 - GBS negative, Blood Type O+ - Feels well today. Eating well, voiding well, ambulating well. - Pain well controlled. - Routine post care - After discharge will have [address] Lima. Supervising Physician Co-Signing Physician Notes Resident Physician Supervision Note: I interviewed and examined the patient. Discussed with Dr. Pozo and agree with findings and plan as documented in the note. Any exceptions or clarifications are listed here: Doing well. Plan d/c. Instructions given. Documented By: Ade Fleming MD, FACOG Subjective Doing well this morning. No pain currently, is going well. Bleeding is about the same as a heavy period. Baby will have a circumcision today. Review of Systems Review of Systems: Denies fever, chills, sweats Denies shortness of breath, difficulty breathing, chest pain, palpitations, chest pressure. Denies breast pain. Denies dysuria. Denies headache. Physical Exam Physical Exam: General: Alert, oriented. No acute distress. Cardiac: Regular rate and rhythm, no murmurs/rubs/gallops. Respiratory: Clear to auscultation anterior and posteriorly, no wheezes/rales/rhonchi. No increased work of breathing. Symmetrical chest rise. No respiratory distress. Abdomen: Soft, nontender, nondistended. Bowel sounds present. Uterus: Uterine fundus firm, palpable 1 cm below umbilicus. Lower Extremities: No lower extremity edema or swelling. No deep calf pain. Jayme's negative bilaterally. Results & Data Vital Signs (Past 12 Hours) Vital Signs Temp Pulse Resp BP Pulse Ox 03/02/19 03:16 37.3 C 83 20 133/90 03/01/19 23:35 36.9 C 81 18 135/92 03/01/19 20:45 36.9 C 85 16 130/76 95 PG Care Time/CCT Total # of Minutes Spent Total Time Spent with Patient: Total time spent is greater than 50% in coordination of care (as documented) at patient's floor/unit and/or counseling patient: Resident Activity Tracking Resident Involvement: Resident Care Provided Care Provided: Adult [facility]
[2019-03-02 07:34] LABS: Hematocrit (blood only) 37.8 % (37-47); Hemoglobin 12.5 g/dL (12.0-16.0); Mean Corpuscular Hemoglobin 29.3 pg (25-34); Mean Corpuscular Hgb Conc 33.1 g/dL (32-36); Mean Corpuscular Volume 88.7 fL (80-100); Mean Platelet Volume 10.6 fL (7.4-10.4); Platelet Count 184 K/uL (130-400); RDW Coefficient of Variation 13.7 % (11.5-14.5); RDW Standard Deviation 44.1 fL (36.4-46.3); Red Blood Count 4.26 M/uL (4.2-5.4); White Blood Count 11.26 K/uL (4.8-10.8)
[2019-03-02] MEDS: DOCUSATE SODIUM 100 MG CAP PO SCH (07:51)
[2019-03-02] MEDS: PRENATAL VITAMIN 1 TAB PO SCH (07:51)
[2019-03-02] MEDS ORDERED: bisacodyL 5 MG TABEC PO SCH (20:00)
== END 2019-03-02 16:45 | disposition home or self-care (01) | DRG 807 ==
LOC: OPB 01:05 → 4S1 01:09 → 4S2 05:35

== ENCOUNTER 2021-01-20 08:47 | Inpatient (IN) ==
[2021-01-20] MEDS ORDERED: D5W AND LACTATED RINGERS 1,000 ML IV SCH (09:15)
[2021-01-20] MEDS ORDERED: LACTATED RINGER'S 1,000 ML IV ONE ×2 (09:39→11:46)
--- NOTE | 2021-01-20 09:42 | History & Physical Report ---
Date of Service January 20, 2021 Assessment & Plan (1) with 34 completed weeks gestation: (2) Person under investigation for COVID-19: (3) Dehydration: (4) Diarrhea: Plan: iup at 34 6/7 weeks with pui and likely covid--seems mild at this point. she has diarrhea and likely dehydration. temp on admission 99.1F. However, she does have cervical dilation so could be in labor--this is her first check. Hope that contractions are mostly from dehydration. Plan aggressive hydration. Check labs. Iniital blood pressure a bit elevated but no s/s of pet and patient admits to being anxious about all of this. Plan to covid test, treating as pui, will likely be positive, is not vaccinated. Discussed situation with peds hospitalist, Dr. Landaverde. He feels like we can attempt care here and if this turns out to be kaitlin and we have a baby, will deal with that. I explained to the patient that if she is positive, will room baby with her as long as it does not need level two care. If needs increased care, they will be as baby will need to be in the nursery and she will not be able to leave the negative pressure room. She is ok with the current situation. Very large ketones and contractions palpate mild. o2 saturation of 98% on room air. She has a harsh cough as well, not tachy , rr 20. Will aggressively hydrate, monitor repiratory status. History of Present Illness Chief Complaint: decreased fm, diarrhea Primary Care Provider: NO PCP Patient is a 30yowf with iup at 34 6/7 weeks who calls this am noting diarrhea and decreased fm. Has not felt the baby move since last night. Diarrhea started yesterday am and increased throughout the day with worsening overnight and into this am--yellow brown. no n/v. Her tested positive for covid and got his result this am. He had a slight sore throat and stuffy nose. Just got confirmed today. she notes a sore throat and a bit of stuffy nose as well, feels like start of sinus infection. Started feeling poorly yesterday morning--fatigued, tired and congested. Notes a cough started yesterday afternoon. no sob/cp. She feels like she is charan, maybe every 10 min or so. She notes she gets pressure like a contraction just prior to having a bought of diarrhea. Delivered with 37 weeks with last and notes had diarrhea pretty badly prior to labor. ON an asa because induced in her second for bp issues. She notes no fever/chills/adame/vision changes/ruq pain/swelling. She is dipping large ketones. no vb/lof. has been otherwise uncomplicated. labs--O+/ab-/ri/rprnr/hepb-/hiv-/gc/ct-/declined genetics/ 28 week gtt nl. GBS unknown. Allergies Allergy/AdvReac Type Severity Reaction Status Date / Time No Known Drug Allergies Allergy Verified 01/07/21 09:57 Home Medications Medication Instructions Recorded Confirmed Type prenat.vits,zhao,ghs-yudw-zcaqk 1 tab PO DAILY 12/18/18 01/07/21 History aspirin 81 mg tablet,delayed 81 mg PO DAILY 12/08/20 01/07/21 History release (Adult Low Dose Aspirin) Patient History Medical History Abnormal biochemical finding on screening of mother, antepartum History of migraine History of varicella vaccination LGSIL on Pap smear of cervix 07/27/16 Surgical History S/P wisdom tooth extraction Family History Aunt Cervical cancer paternal Mother Thyroid disease Sister Thyroid disease Social History Smoking Status: Never smoker Second Hand Exposure: No; Hx Alcohol Use: No Hx Substance Use: No Preferred Language: Frisian Log Sawyer Required: No Beliefs That Will Affect Care: None marital status: marital status details: Дмитрий Kennedy (37) [phone] Current Living Situation: Family Current Living Situation Comment: spouse, 2 children, 1 dog, 2 cats, spouse to change litter. current occupational status: unemployed Feels Safe at Home: Yes Assistive Devices: Glasses OB History g1--06/09--37 week, induction due to blood pressure, 5#7oz, g2--03/10---37 week labor 5#5oz, OVER [employer] History hx of abnl pap in the past 2016 Review of Systems All systems reviewed & are unremarkable except as noted in HPI & below Physical Exam Constitutional: WD/WN, vitals as above Neck: trachea midline, no thyromegaly Respiratory: normal respiratory effort, lungs clear to auscultation Cardiovascular: RRR, no murmur, no edema Extremities: no calf tenderness and no edema Gastrointestinal (Abdomen): soft, nt, nd, no ruq pain Skin: no rashes, warm and dry Psychiatric: A+Ox3, euthymic affect Genitourinary: cx--3/75/-2 toco--q 5 min efm--140s, mod variability, accels to 150s, no decels toco--q5-6min Results & Data ([facility]) Vital Signs (Past 12 Hours) Vital Signs Pulse BP Pulse Ox 01/20/21 09:38 87 98 01/20/21 09:33 96 H 89 L 01/20/21 09:12 81 140/87 Coding Level of Care Code None Diagnoses with 34 completed weeks gestation Z3A.34 Person under investigation for COVID-19 Z20.822 Dehydration E86.0 Diarrhea R19.7
[2021-01-20 11:10] LABS: BUN Creatinine Ratio 12.5 (10-20); Blood Urea Nitrogen 9 mg/dl (7-18); Calcium 8.1 mg/dl (8.5-10.1); Est GFR (African American) 137.3 ml/min; Est GFR (Non-African American) 118.5 ml/min; Total Protein 6.5 gm/dl (6.4-8.2)
[2021-01-20 11:19] LABS: Basophils # (auto) 0.01 K/uL (0-0.2); Basophils % (auto) 0.1 %; Hemoglobin 13.8 g/dL (12.0-16.0); Immature Granulocytes # (auto) 0.02 K/uL (0.00-0.02); Immature Granulocytes % (auto) 0.3 %; Lymphocytes # (auto) 1.01 K/uL (1.2-3.4); Lymphocytes % (auto) 14.8 %; Mean Corpuscular Hemoglobin 30.1 pg (25-34); Mean Corpuscular Hgb Conc 33.7 g/dL (32-36); Mean Corpuscular Volume 89.5 fL (80-100); Mean Platelet Volume 11.9 fL (7.4-10.4); Monocytes # (auto) 0.35 K/uL (0.11-0.59); Monocytes % (auto) 5.1 %; Neutrophils # (auto) 5.44 K/uL (1.4-6.5); Neutrophils % (auto) 79.7 %; Platelet Count 100 K/uL (130-400); Platelet Estimate Decreased (Normal); RDW Coefficient of Variation 13.7 % (11.5-14.5); RDW Standard Deviation 44.8 fL (36.4-46.3); Red Blood Count 4.58 M/uL (4.2-5.4); White Blood Count 6.83 K/uL (4.8-10.8)
[2021-01-20 11:21] LABS: Alanine Aminotransferase 30 U/L (12-78); Albumin Globulin Ratio 0.6 (0.9-2); Albumin Level 2.5 gm/dl (3.4-5.0); Alkaline Phosphatase 117 U/L (45-117); Bilirubin,Total 0.3 mg/dl (0.2-1); Carbon Dioxide 18 mmol/L (21-32); Chloride 110 mmol/L (98-107); Glucose 64 mg/dl (70-99); Potassium 3.8 mmol/L (3.5-5.1); Sodium 139 mmol/L (136-145)
[2021-01-20 11:35] LABS: Aspartate Aminotransferase 41 U/L (15-37)
--- NOTE | 2021-01-20 11:48 | Obstetrical Progress Note ---
Date of Service January 20, 2021 Assessment & Plan (1) Diarrhea: (2) Dehydration: (3) Person under investigation for COVID-19: (4) with 34 completed weeks gestation: Plan: no change in cervix, so do not suspect labor. Has not voided since first here, has not had a stool. Continue aggressive hydration, being careful not to overload. No electrolyte abnl. Sating 99% on room air. coat baster 0.67, one lft slightly elevated at 41, plts 100. I do not think she has HELLP. Likely low plts as well as other small changes from covid. Still awaiting results of testing. fetus category one and reactive nst. She has noted some fm since being here. Nursing notes the baby has been very active. Repeat blood pressure 139/85. urine dip 1+ protein but likely from dehydration. will continue to monitor all closely. Subjective Feeling about the same. Still notes cramping/contractions. not sob, Physical Exam Physical Exam: cx--unchanged, not as low toco--q5-8 efm--130s with mod variaibility, accels to 160s, no decels Results & Data ([facility]) Vital Signs (Past 12 Hours) Vital Signs Temp Pulse Resp BP Pulse Ox 01/20/21 11:43 88 92 01/20/21 11:41 90 92 01/20/21 11:38 85 96 01/20/21 11:34 89 92 01/20/21 11:33 88 99 01/20/21 11:28 81 100 01/20/21 11:23 79 99 01/20/21 11:18 83 97 01/20/21 11:13 81 100 01/20/21 11:08 90 99 01/20/21 11:03 80 100 01/20/21 10:58 87 99 01/20/21 10:53 85 99 01/20/21 10:49 88 92 01/20/21 10:48 82 99 01/20/21 10:43 83 98 01/20/21 10:38 92 H 98 01/20/21 10:33 92 H 95 01/20/21 10:28 87 99 01/20/21 10:23 91 H 99 01/20/21 10:18 85 99 01/20/21 10:14 87 93 08/31/21 10:13 96 H 97 01/20/21 10:08 87 99 01/20/21 10:03 84 98 01/20/21 09:58 91 H 97 01/20/21 09:53 90 98 01/20/21 09:48 84 98 01/20/21 09:43 83 98 01/20/21 09:38 87 98 01/20/21 09:33 96 H 89 L 01/20/21 09:12 37.3 C 81 20 140/87 PG Care Time/CCT Total # of Minutes Spent Total Time Spent with Patient: Total time spent is greater than 50% in coordination of care (as documented) at patient's floor/unit and/or counseling patient: Coding Level of Care Code None Diagnoses Diarrhea R19.7 Dehydration E86.0 Person under investigation for COVID-19 Z20.822 with 34 completed weeks gestation Z3A.34
[2021-01-20] MEDS ORDERED: LACTATED RINGER'S 1,000 ML IV SCH (13:00)
--- NOTE | 2021-01-20 13:00 | Communication Note ---
Date of Service: January 20, 2021 plts back 100K, was over 200K in 07/13. AST barely elevated. cake washer nl. Discussed this patient with Dr. Dee Robertson, MFM fellow at [facility] [place]. they have seen TCP with covid but also cannot completely r/o hellp. Plan to admit overnight and do serial labs every 6 hours to see the trend of the plts and lfts. If lfts bump or pressures bump, then have to call HELLP and deliver. If stays stable, likely due to covid. May get medicine in just to look at her. Explained all to the patient and questions answered.
[2021-01-20 13:28] LABS: Creatinine Urine Random 21.8 mg/dl; Protein Creatinine Ratio Urine 0.4 (0-0.2); Total Protein Urine Random 8.6 mg/dl (0-11.9)
[2021-01-20] MEDS ORDERED: ACETAMINOPHEN 325 MG TAB PO ONE (15:25)
--- NOTE | 2021-01-20 15:28 | Obstetrical Progress Note ---
Date of Service January 20, 2021 Assessment & Plan (1) Diarrhea: (2) Dehydration: (3) Person under investigation for COVID-19: (4) with 34 completed weeks gestation: Plan: still no cervical change. Has voided again, less concentrated and now neg protein, still mod ketones. urin pro/car servicer ratio is 0.4, elevated. Fetus category one. Plan repeat labs in one hour. bps more concerning now. If plts continuing to fall and lfts bumping, I have to suspect hellp in setting of covid. She is really feeling poorly most likely from covid at this point--exhausted, so tired. Will continue to monitor closely. Subjective Patient just not feeling well. Cold. Has [facility] on back. Notes contractions more painful -09/29. Physical Exam Physical Exam: cx--/-2/post toco--q4-8min efm--140s with mod variability, accels to 160s, rare variable Results & Data ([facility]) Vital Signs (Past 12 Hours) Vital Signs Temp Pulse Resp BP Pulse Ox 01/20/21 15:20 100 H 96 01/20/21 15:15 110 H 97 01/20/21 15:10 104 H 96 01/20/21 15:05 107 H 96 01/20/21 15:00 100 H 98 01/20/21 14:57 101 H 145/91 H 01/20/21 14:55 111 H 98 01/20/21 14:50 104 H 97 01/20/21 14:45 104 H 97 01/20/21 14:40 93 H 98 01/20/21 14:35 98 H 96 01/20/21 14:30 119 H 97 01/20/21 14:25 103 H 97 01/20/21 14:20 91 H 97 01/20/21 14:15 94 H 98 01/20/21 14:10 96 H 98 01/20/21 14:05 96 H 98 01/20/21 14:01 103 H 93 01/20/21 14:00 98 H 97 01/20/21 13:51 99 H 97 01/20/21 13:48 102 H 146/87 H 01/20/21 13:46 103 H 98 01/20/21 13:41 102 H 98 01/20/21 13:38 98 H 144/84 H 01/20/21 13:36 102 H 97 01/20/21 13:31 100 H 98 01/20/21 13:26 97 H 97 01/20/21 13:21 94 H 99 01/20/21 13:16 87 97 01/20/21 13:11 88 98 01/20/21 13:06 86 98 01/20/21 13:01 90 99 01/20/21 12:56 95 H 99 01/20/21 12:51 94 H 99 01/20/21 12:46 89 99 01/20/21 12:41 87 99 01/20/21 12:36 92 H 99 01/20/21 12:31 91 H 100 01/20/21 12:13 82 99 01/20/21 12:08 88 98 01/20/21 12:03 91 H 99 01/20/21 11:58 81 99 01/20/21 11:53 81 100 01/20/21 11:51 82 139/85 01/20/21 11:48 83 99 01/20/21 11:43 88 92 01/20/21 11:41 90 92 01/20/21 11:38 85 96 01/20/21 11:34 89 92 01/20/21 11:33 88 99 01/20/21 11:28 81 100 01/20/21 11:23 79 99 01/20/21 11:18 83 97 01/20/21 11:13 81 100 01/20/21 11:08 90 99 01/20/21 11:03 80 100 01/20/21 10:58 87 99 01/20/21 10:53 85 99 01/20/21 10:49 88 92 01/20/21 10:48 82 99 01/20/21 10:43 83 98 01/20/21 10:38 92 H 98 01/20/21 10:33 92 H 95 01/20/21 10:28 87 99 01/20/21 10:23 91 H 99 01/20/21 10:18 85 99 01/20/21 10:14 87 93 01/20/21 10:13 96 H 97 01/20/21 10:08 87 99 01/20/21 10:03 84 98 01/20/21 09:58 91 H 97 01/20/21 09:53 90 98 01/20/21 09:48 84 98 01/20/21 09:43 83 98 01/20/21 09:38 87 98 01/20/21 09:33 96 H 89 L 01/20/21 09:12 37.3 C 81 20 140/87 01/20/21 09:00 37.3 C 81 20 140/87 98 PG Care Time/CCT Total # of Minutes Spent Total Time Spent with Patient: Total time spent is greater than 50% in coordination of care (as documented) at patient's floor/unit and/or counseling patient: Coding Level of Care Code None Diagnoses Diarrhea R19.7 Dehydration E86.0 Person under investigation for COVID-19 Z20.822 with 34 completed weeks gestation Z3A.34
[2021-01-20] MEDS ORDERED: ACETAMINOPHEN 325 MG TAB ONE (15:31)
[2021-01-20 16:56] LABS: Hematocrit (blood only) 38.6 % (37-47); Mean Corpuscular Hgb Conc 33.7 g/dL (32-36); Mean Corpuscular Volume 88.9 fL (80-100); Mean Platelet Volume 10.9 fL (7.4-10.4); Platelet Count 105 K/uL (130-400); RDW Coefficient of Variation 13.6 % (11.5-14.5); RDW Standard Deviation 44.5 fL (36.4-46.3); Red Blood Count 4.34 M/uL (4.2-5.4)
[2021-01-20 17:08] LABS: Albumin Level 2.2 gm/dl (3.4-5.0); Calcium 7.8 mg/dl (8.5-10.1); Creatinine Clr Calc Pharmacy 146.4 ml/min; Est GFR (Non-African American) 123.4 ml/min; Potassium 3.5 mmol/L (3.5-5.1)
[2021-01-20 17:11] LABS: Albumin Globulin Ratio 0.6 (0.9-2); Bilirubin,Total 0.3 mg/dl (0.2-1); Globulin 3.5 gm/dl (2.5-4.0); Total Protein 5.7 gm/dl (6.4-8.2)
--- NOTE | 2021-01-20 17:17 | Communication Note ---
Date of Service: January 20, 2021 Patient had an elevated blood pressure of 166/97 with repeat of 149/99. Plts stable at 105K. lfts are now within normal range. Contractions seem to be spacing although patient notes she is more uncomfortable, fatigued , achy. Palpated a contraction and was mild-mod. fetus reassuring category one. Plan to repeat labs in 6 hours, monitor bps, start 24 hour urine collection. Not ready to call this hellp as of yet as all labs are stable/better. Will continue to monitor bps slowly, continue to hydrate.
[2021-01-20] MEDS ORDERED: ePHEDrine sulfate 50 MG/ML AMP ONE (17:48)
[2021-01-20] MEDS ORDERED: fentaNYL citrate 100 MCG/2 ML VIAL ONE (17:49)
[2021-01-20] MEDS ORDERED: SODIUM CHLORIDE 0.9% INJ 10 ML VIAL ONE (17:49)
[2021-01-20] MEDS ORDERED: BUPIVACAINE 0.25% 30 ML VIAL ONE (17:49)
[2021-01-20] MEDS ORDERED: fentaNYL 2MCG/ML ROPIVACAINE 1.25MG/ML 100 ML BAG EPI ONE (17:50)
[2021-01-20] MEDS ORDERED: OXYTOCIN 30 UNITS/500ML NSS ONE (18:00)
[2021-01-20] MEDS ORDERED: PENICILLIN G POTASSIUM 6 MU in DEXTROSE 5% 250 ML IV ONE (18:15)
[2021-01-20] MEDS ORDERED: LIDOCAINE 1% LOCAL 20 ML VIAL ONE (18:19)
[2021-01-20 18:24] LABS: Basophils # (auto) 0.01 K/uL (0-0.2); Basophils % (auto) 0.1 %; Immature Granulocytes # (auto) 0.04 K/uL (0.00-0.02); Immature Granulocytes % (auto) 0.6 %; Lymphocytes # (auto) 1.27 K/uL (1.2-3.4); Lymphocytes % (auto) 17.6 %; Monocytes # (auto) 0.36 K/uL (0.11-0.59); Neutrophils # (auto) 5.52 K/uL (1.4-6.5); Neutrophils % (auto) 76.7 %
[2021-01-20] MEDS ORDERED: OXYTOCIN 30 UNITS/500 ML BAG IV PRN ×2 (18:40→18:41)
[2021-01-20] MEDS ORDERED: SUPERCREAM 0.870% 15 GM JAR EXT PRN (18:41)
[2021-01-20] MEDS ORDERED: ACETAMINOPHEN 325 MG TAB PO PRN (18:41)
[2021-01-20] MEDS ORDERED: BENZOCAINE 20% AER SPR 82.5 GM CAN EXT PRN (18:41)
[2021-01-20] MEDS ORDERED: DIPHTHERIA/TETANUS/PERTUSSIS 0.5 ML SYR/VIAL IM ONE (18:41)
[2021-01-20] MEDS ORDERED: HYDROCORTISONE ACETATE 25 MG SUPP PR PRN (18:41)
--- NOTE | 2021-01-20 18:45 | Delivery Summary ---
Vaginal Delivery Summary Date of Service January 20, 2021 Pre-operative Diagnosis: at 34 6/7 weeks covid + kaitlin Post-operative Diagnosis: same Procedure: ivf hydration first degree laceration and repair. EBL: 300cc Anesthesia: local infiltration to the perineum Procedure: The patient was admitted at 34 6/7 weeks for covid +, diarrhea, dehydration. The patient was found to be charan q 5-7 minutes, but palpated mild. Her cervix was initially checked and was 3/75. She was checked several times over the next few hours with no change. She was aggressively IV hydrated. Labs were obtained and plts 100K, slightly elevated ast. BPS were borderline at 140/90s. She suddenly became more painful and was then checked and found to be 8cm. She progressed to c/c/+1 in the next 10 minutes. The patient pushed for 3 contractions to deliver a viable male in onelia position. The membranes were ruptured for clear fluid just prior to delivery. GBS status was unknown and unfortunately because of how rapid labor ensued, we did not get PCN on board. The rest of the infant was then delivered without difficulty. The baby was vigorous. The nose and mouth were bulb suctioned and the was placed in the maternal abdomen for drying and attention. Cord was clamped and cut at about 30 secs. Cord blood and segment obtained. Placenta delivered spontaneous, intact with a three vessel cord. Cervix/sulci/rectum were intact. A first degree perineal laceration was repaired in the normal standard fashion. Hemostasis obtained with dilute pitocin and fundal massage. Apgars were 8/9. Mother and baby doing well at the end of the delivery. Peds was present at delivery. Repeat labs showed stabilization/improvement. bps after delivery 140/80s. Will continue to monitor closely. Vaginal Delivery Summary and 1st Degree LAC [facility] Vaginal Delivery Charge Delivery Type Details: and 1st Degree LAC
[2021-01-20 18:58] LABS: Base Excess Cord Arterial Bld -5.1 mEq/L (-9-1.8); Base Excess Cord Venous Blood -3.7 mEq/L (-7.7-1.9); CO2 Cord Arterial Blood 46 mmHg (39.1-73.5); Cord Venous Blood HCO3 20 mmol/L (18.4-26.8); Cord Venous Blood PCO2 34 mmHg (30.4-57.2); Cord Venous Blood PO2 29 mmHg (14.1-43.3); Cord Venous Blood pH 7.39 (7.20-7.44); HCO3 Cord Arterial Blood 22 mmol/L (19.7-28.5); PO2 Cord Arterial Blood 19 mmHg (4.1-31.7); pH Cord Arterial Blood 7.29 (7.1-7.38)
[2021-01-20 19:00] LABS: Oxygen Sat Cord Arterial Blood < 60.0 % (<60)
[2021-01-20] MEDS ORDERED: OXYTOCIN 20 UNITS in LACTATED RINGER'S 1,000 ML IV SCH (19:00)
[2021-01-20] MEDS: DOCUSATE SODIUM 100 MG CAP PO SCH (22:12)
[2021-01-20 22:42] LABS: Hematocrit (blood only) 37.6 % (37-47); Hemoglobin 12.6 g/dL (12.0-16.0); Mean Corpuscular Hemoglobin 30.2 pg (25-34); Mean Corpuscular Hgb Conc 33.5 g/dL (32-36); Mean Corpuscular Volume 90.2 fL (80-100); RDW Coefficient of Variation 13.6 % (11.5-14.5); Red Blood Count 4.17 M/uL (4.2-5.4); White Blood Count 8.44 K/uL (4.8-10.8)
[2021-01-20 22:58] LABS: BUN Creatinine Ratio 11.4 (10-20); Calcium 7.4 mg/dl (8.5-10.1); Creatinine Clr Calc Pharmacy 140.1 ml/min; Est GFR (African American) 142.2 ml/min; Est GFR (Non-African American) 122.7 ml/min; Potassium 3.6 mmol/L (3.5-5.1)
[2021-01-20 23:01] LABS: Albumin Globulin Ratio 0.6 (0.9-2); Bilirubin,Total 0.2 mg/dl (0.2-1); Globulin 3.4 gm/dl (2.5-4.0); Total Protein 5.4 gm/dl (6.4-8.2)
[2021-01-20 23:17] LABS: Mean Platelet Volume 10.7 fL (7.4-10.4); Platelet Count 93 K/uL (130-400)
[2021-01-20 23:18] LABS: Platelet Estimate Decreased (Normal)
--- NOTE | 2021-01-20 23:24 | Communication Note ---
Date of Service: January 20, 2021 plts 93K. Doing well. No excessive bleeding. Pressures still 130-140/80-90. Will continue to monitor closely. lfts are still wnl. Repeat labs in 6 hours.
[2021-01-21 05:20] LABS: Hematocrit (blood only) 37.8 % (37-47); Hemoglobin 12.7 g/dL (12.0-16.0); Mean Corpuscular Hgb Conc 33.6 g/dL (32-36); Mean Corpuscular Volume 89.4 fL (80-100); Mean Platelet Volume 10.8 fL (7.4-10.4); Platelet Count 105 K/uL (130-400); RDW Coefficient of Variation 13.6 % (11.5-14.5); RDW Standard Deviation 44.9 fL (36.4-46.3); Red Blood Count 4.23 M/uL (4.2-5.4); White Blood Count 8.76 K/uL (4.8-10.8)
[2021-01-21 05:36] LABS: Albumin Level 1.9 gm/dl (3.4-5.0); BUN Creatinine Ratio 11.3 (10-20); Calcium 7.3 mg/dl (8.5-10.1); Creatinine Clr Calc Pharmacy 157.9 ml/min; Est GFR (African American) 147.9 ml/min; Est GFR (Non-African American) 127.6 ml/min; Potassium 3.6 mmol/L (3.5-5.1)
[2021-01-21 05:39] LABS: Albumin Globulin Ratio 0.6 (0.9-2); Bilirubin,Total 0.3 mg/dl (0.2-1); Globulin 3.1 gm/dl (2.5-4.0)
--- NOTE | 2021-01-21 06:07 | Obstetrical Progress Note ---
Date of Service <Deniz Mckeon MD - Last Filed: 01/21/21 06:59> January 21, 2021 Assessment & Plan <Deniz Mckeon MD - Last Filed: 01/21/21 06:59> (1) Vaginal delivery: 30 yo , complicated by COVID, now PPD1 from at 34wk6d -Continue routine care -Low suspicion for HELLP, symptoms more likely attributed to COVID -Vitals reviewed- HDS, afebrile -Blood type O+, GBS unknown, Rubella immune -Encourage ambulation -Pain control with Motrin, Tylenol PRN -Regular diet -Monitor lochia -Encourage -Hgb 12.7 -F/u in 6 weeks with OB (2) COVID-19: COVID+, symptomatic with cough. Hospitalist team consulted, will evaluate today. <Ade Fleming MD, FACOG - Last Filed: 01/21/21 07:12> (1) Vaginal delivery: (2) COVID-19: Subjective <Deniz Mckeon MD - Last Filed: 01/21/21 06:59> Ambulation: ambulating normally Voiding: no voiding problems Passing Gas:: Yes Diet Tolerance:: regular diet Lochia:: Small Feeding Type:: breast feeding Current Pain Level(1-10): 0 Pt doing well, no acute events or new complaints. Baby doing well. Pt has not passed BM yet. Cough is still largely unchanged but denies any dyspnea or respiratory distress, no dysphagia or sore throat. Feels better compared to on admission. Review of Systems Denies fevers/chills. +Cough, denies dyspnea. Denies chest pain. Denies breast pain or discharge. Denies dysuria. Denies headache. Physical Exam <Deniz Mckeon MD - Last Filed: 01/21/21 06:59> General: Alert, oriented, no acute distress Cardiac: Regular rate and rhythm, normal S1, S2. No murmurs appreciated. Respiratory: Clear to auscultation b/l with good air flow entry, symmetric chest rise and fall. No wheezes or crackles. No increased work of breathing or accessory muscle use. Abdomen: Soft, nontender, nondistended. Fundus firm and palpable at 2 cm below umbilicus. No guarding or rebound. Skin: No rashes or lesions Extremities: Warm, dry, well-perfused with capillary refill <2s b/l. No lower extremity edema, erythema or swelling. Negative Jayme's sign b/l. Results & Data ([facility]) <Deniz Mckeon MD - Last Filed: 01/21/21 06:59> Vital Signs (Past 12 Hours) Vital Signs Temp Pulse Pulse Resp BP BP Pulse Ox 01/21/21 04:05 36.8 C 77 16 133/78 96 01/20/21 23:10 36.8 C 76 18 144/93 H 96 01/20/21 20:58 79 147/90 H 01/20/21 20:55 85 95 01/20/21 20:50 85 95 01/20/21 20:45 83 95 01/20/21 20:42 81 139/88 01/20/21 20:40 83 96 01/20/21 20:35 83 96 01/20/21 20:30 82 96 01/20/21 20:28 82 18 129/86 01/20/21 20:25 83 95 01/20/21 20:20 100 H 95 01/20/21 20:15 84 97 01/20/21 20:12 88 18 146/94 H 01/20/21 19:57 85 18 144/86 H 96 01/20/21 19:42 80 20 139/81 97 01/20/21 19:27 37.0 C 85 16 137/80 96 01/20/21 19:13 76 18 135/86 97 01/20/21 18:57 81 20 121/90 96 01/20/21 18:50 86 95 01/20/21 18:45 81 96 01/20/21 18:43 80 144/88 H 01/20/21 18:40 82 97 01/20/21 18:35 83 97 01/20/21 18:30 82 97 01/20/21 18:28 81 141/70 H 01/20/21 18:25 87 97 01/20/21 18:20 91 H 95 01/20/21 18:19 84 132/73 01/20/21 18:15 78 96 01/20/21 18:10 86 97 01/20/21 18:06 87 94 01/20/21 18:05 86 96 <Ade Fleming MD, FACOG - Last Filed: 01/21/21 07:12> Co-Signing Physician Notes Resident Physician Supervision Note: I interviewed and examined the patient. Discussed with Dr. Mckeon and agree with findings and plan as documented in the note. Any exceptions or clarifications are listed here: Doing well from pp standpoint. plts back up to 105K, lfts are normal. Pressures are normal. Suspect she does not have hellp. Will await recommendations from medicine today regarding covid, but stable. Lungs clear. sats good on room air. Baby is doing very well. In isolette in room. Documented By: Ade Fleming MD, FACOG Resident Activity Tracking <Deniz Mckeon MD - Last Filed: 01/21/21 06:59> Resident Involvement: Resident Care Provided Care Provided: OB Delivery
--- NOTE | 2021-01-21 07:55 | Hospitalist Consultation ---
Date of Consultation January 21, 2021 History of Present Illness Attending Physician: Ade Fleming MD, FACOG Allergies Allergy/AdvReac Type Severity Reaction Status Date / Time No Known Drug Allergies Allergy Verified 01/07/21 09:57 Home Medications Medication Instructions Recorded Confirmed Type prenat.vits,zhao,sbh-swgy-ufdro 1 tab PO DAILY 12/18/18 01/20/21 History aspirin 81 mg tablet,delayed 81 mg PO DAILY 12/08/20 01/20/21 History release (Adult Low Dose Aspirin) Patient History Medical History (Updated 01/21/21 @ 06:05 by Deniz Mckeon MD) Abnormal biochemical finding on screening of mother, antepartum COVID-19 History of migraine History of varicella vaccination LGSIL on Pap smear of cervix 07/27/16 Surgical History S/P wisdom tooth extraction Family History Aunt Cervical cancer paternal Mother Thyroid disease Sister Thyroid disease Social History Smoking Status: Never smoker Second Hand Exposure: No; Do You Dip or Chew Tobacco: No; Tobacco Cessation Education Requested by Patient: No Hx Alcohol Use: No Hx Substance Use: No Preferred Language: Yi Communication Ability: Effective Medical Lab Director Required: No Beliefs That Will Affect Care: None marital status: marital status details: Дмитрий Kennedy (37) [phone] Current Living Situation: Spouse Current Living Situation Comment: spouse, 2 children, 1 dog, 2 cats, spouse to change litter. current occupational status: unemployed Other Information That Helps Us Care for You: No Feels Safe at Home: Yes Safety Concerns: Feels Safe At This Time Assistive Devices: Glasses Results & Data Results & Data ([facility]) Vital Signs (Past 12 Hours) Vital Signs Temp Pulse Pulse Resp BP BP Pulse Ox 01/21/21 04:05 36.8 C 77 16 133/78 96 01/20/21 23:10 36.8 C 76 18 144/93 H 96 01/20/21 20:58 79 147/90 H 01/20/21 20:55 85 95 01/20/21 20:50 85 95 08/31/21 20:45 83 95 01/20/21 20:42 81 139/88 01/20/21 20:40 83 96 01/20/21 20:35 83 96 01/20/21 20:30 82 96 01/20/21 20:28 82 18 129/86 01/20/21 20:25 83 95 01/20/21 20:20 100 H 95 01/20/21 20:15 84 97 01/20/21 20:12 88 18 146/94 H 01/20/21 19:57 85 18 144/86 H 96
[2021-01-21] MEDS ORDERED: PRENATAL VITAMIN 1 TAB PO SCH (08:00)
[2021-01-21] MEDS: DOCUSATE SODIUM 100 MG CAP PO SCH ×2 (08:57→20:54)
[2021-01-21] MEDS: IBUPROFEN 600 MG TAB PO PRN ×3 (08:57→23:26)
--- NOTE | 2021-01-21 10:54 | Hospitalist Consultation ---
Date of Consultation January 21, 2021 Assessment & Plan (1) COVID-19: 30yo s/p at 34+6wga on PPD#1 presents with symptomatic covid infection and thrombocytopenia. Covid-19 Patient tested positive for covid on 01/20 after a 1-2 day history of cough, congestion, and diarrhea Hemodynamically stable, maintaining adequate oxygen saturation on room air Patient currently with mild illness, has not required supplemental oxygen Given patient's infection is likely still in its early stages, and increased morbidity/mortality risk in patients in the peripartum period, will consider REGN-COV2 treatment; would only be able to be administered in the ED upon discharge Patient does not meet criteria for prophylactic anticoagulation despite multiple DVT risk factors Continue close monitoring, airborne precautions Medicine will continue to follow Thrombocytopenia Platelets at 100 on admission, fell to 93 prior to delivery, has since improved to 105 No signs/symptoms of coagulopathy No intervention indicated at this time Continue to monitor state Management per OBGYN Continue PNV, ibuprofen, tylenol, supercream, bowel regimen FEN: LR@150mL/hr Code status: full code DVT ppx: not indicated Held home meds: none Isolation: airborne PT/OT: not indicated Dispo: med/surg tele Supervising Physician Co-Signing Physician Notes I personally examined the patient and verified all shoemaker points of history and exam, discussed case, and agree with decision making with Dr Martinez. Generally feeling okay. Has a little bit of a cough, no shortness of breath no chest pain no chest congestion no body aches. Started first feeling any symptoms of his illness probably Tuesday night. That would make today about day 3 of illness. Baby is doing well. Breast-feeding. Vitals noted, in general she is awake and alert pleasant no distress. HEENT normocephalic atraumatic mucous membranes are moist. Lungs are clear to auscultation bilaterally no rales rhonchi or wheezes with good effort. Skin shows no rashes no pallor or icterus. Neuro without focal deficits. Early/mild COVID-19in the context of statefortunately right now she is looking very good, we had an extensive and lengthy discussion about the risks and benefits of expectant management versus regenCov monoclonal antibodies. She has very good questions, I tried to give a good rationale for both expectant management (that she is overall young and healthy, very mildly ill at worst, and statistically unlikely to progress, with the risk that given she is currently more at risk given having just gone through labor and delivery and late , she has a small but real potential to deteriorate in a serious or life-threatening way) as well as treatment (early intervention has an evidence- based benefit in lessening severity of illness and making it even more less likely that she would progress to severe illness, and to the best that we can te ll it is unlikely to pose problems to her with her breast-feeding, but that it is a treatment that has only been in existence for less than a year, and obviously not overly well studied in the current context, although I was not really able to present any specific problems I could conceive for mom or baby unique to her situation). She expressed a good understanding of the situation, asked very good questions, and is thinking about her options. We discussed that obviously, if treatment is going to be pursued, earlier treatment tends to affect outcomes better. We also discussed the bureaucratic limitations of being able to dose treatment in an outpatient setting only, meaning that we would probably move straight from discharge to the ER to get her dose of monoclonal antibodies, and then back upstairs to nest with her ). History of Present Illness Reason for Consultation: covid, thrombocytopenia Attending Physician: Ade Fleming MD, FACOG History of Present Illness Patient is a 30yo with active covid disease, s/p at 34+6wga on PPD#1. Patient has a two-day history of diarrhea, cough, and congestion. Patient called her cyber security systems engineer on 01/20 out of concern for diarrhea and decreased movement, in addition to learning her tested positive for covid. Patient was encouraged to come to [facility] for further evaluation. On arrival, patient was found with platelets at 100 and was dehydrated. Patient was found with contractions every 5-7 minutes and was 3cm dilated/75% effaced. Patient was treated with aggressive IVF. Later in the day, patient rapidly progressed to full cervical dilation, and a male was delivered via spontaneous vaginal delivery. Medicine was consulted due to active covid infection and low platelet count. This morning, patient feels well and complains only of cough. Endorses feeling fortunate that delivery went well and that her covid infection is relatively mild at this time (things could be so much worse). Pain is well-controlled at this time. Denies CP, SOB, nausea, vomiting, lightheadedness with standing, dizziness, sore throat, facial tenderness, palpitations, fever, chills, or other symptoms. Allergies Allergy/AdvReac Type Severity Reaction Status Date / Time No Known Drug Allergies Allergy Verified 01/07/21 09:57 Home Medications Medication Instructions Recorded Confirmed Type prenat.vits,zhao,nua-jpgn-jmqef 1 tab PO DAILY 12/18/18 01/20/21 History aspirin 81 mg tablet,delayed 81 mg PO DAILY 12/08/20 01/20/21 History release (Adult Low Dose Aspirin) Patient History Medical History (Updated 01/21/21 @ 06:05 by Deniz Mckeon MD) Abnormal biochemical finding on screening of mother, antepartum COVID-19 History of migraine History of varicella vaccination LGSIL on Pap smear of cervix 07/27/16 Surgical History S/P wisdom tooth extraction Family History Aunt Cervical cancer paternal Mother Thyroid disease Sister Thyroid disease Social History Smoking Status: Never smoker Second Hand Exposure: No; Do You Dip or Chew Tobacco: No; Tobacco Cessation Education Requested by Patient: No Hx Alcohol Use: No Hx Substance Use: No Preferred Language: Kazakh Communication Ability: Effective Coffee Weigher Required: No Beliefs That Will Affect Care: None marital status: marital status details: Дмитрий Kennedy [phone] Current Living Situation: Spouse Current Living Situation Comment: spouse, 2 children, 1 dog, 2 cats, spouse to change litter. current occupational status: unemployed Other Information That Helps Us Care for You: No Feels Safe at Home: Yes Safety Concerns: Feels Safe At This Time Assistive Devices: None Review of Systems Review of Systems: See HPI Physical Exam Physical Exam: Constitutional: well-appearing, no acute distress CV: regular rhythm, no murmur appreciated, extremities well-perfused, no LE edema Resp: CTABL, no wheezes/rales/rhonchi appreciated, no increased work of breathin g MSK: no gross deformities appreciated Skin: warm, dry, no rash appreciated Neuro: AOx4, no focal neurological deficits appreciated Results & Data Results & Data ([facility]) Vital Signs (Past 12 Hours) Vital Signs Temp Pulse Resp BP Pulse Ox 01/21/21 08:25 36.9 C 88 18 133/90 94 01/21/21 04:05 36.8 C 77 16 133/78 96 01/20/21 23:10 36.8 C 76 18 144/93 H 96 Resident Activity Tracking Resident Involvement: Resident Care Provided Care Provided: Adult Hospital Medicine
--- NOTE | 2021-01-21 19:07 | Billing Data ---
Date of Service January 21, 2021 Coding Level of Care Code 96506 Subseq Hosp Care Lvl 3
[2021-01-21] MEDS ORDERED: bisacodyL 5 MG TABEC PO SCH (20:00)
[2021-01-21] MEDS ORDERED: COUGH DROP (SUGAR FREE) LOZ 24 LOZ/1 BOX BUCCAL PRN (22:59)
[2021-01-22] MEDS: guaiFENesin/DEXTROM SYRUP 100MG/10MG 5ML UDC PO PRN ×2 (00:18→12:08)
[2021-01-22] MEDS ORDERED: bisacodyL 10 MG SUPP PR PRN (06:00)
[2021-01-22 06:07] LABS: Basophils # (auto) 0.01 K/uL (0-0.2); Basophils % (auto) 0.1 %; Eosinophils # (auto) 0.02 K/uL (0-0.5); Eosinophils % (auto) 0.3 %; Hematocrit (blood only) 33.8 % (37-47); Hemoglobin 11.2 g/dL (12.0-16.0); Immature Granulocytes # (auto) 0.02 K/uL (0.00-0.02); Immature Granulocytes % (auto) 0.3 %; Lymphocytes # (auto) 2.31 K/uL (1.2-3.4); Lymphocytes % (auto) 34.2 %; Mean Corpuscular Hemoglobin 29.7 pg (25-34); Mean Corpuscular Hgb Conc 33.1 g/dL (32-36); Mean Corpuscular Volume 89.7 fL (80-100); Mean Platelet Volume 10.4 fL (7.4-10.4); Monocytes # (auto) 0.46 K/uL (0.11-0.59); Monocytes % (auto) 6.8 %; Neutrophils # (auto) 3.93 K/uL (1.4-6.5); Neutrophils % (auto) 58.3 %; Platelet Count 111 K/uL (130-400); RDW Coefficient of Variation 13.7 % (11.5-14.5); RDW Standard Deviation 45.2 fL (36.4-46.3); Red Blood Count 3.77 M/uL (4.2-5.4); White Blood Count 6.75 K/uL (4.8-10.8)
--- NOTE | 2021-01-22 06:19 | Obstetrical Progress Note ---
Date of Service <Deniz Mckeon MD - Last Filed: 01/22/21 07:04> January 22, 2021 Assessment & Plan <Deniz Mckeon MD - Last Filed: 01/22/21 07:04> (1) Vaginal delivery: 30 yo , complicated by COVID, now PPD1 from at 34wk6d -Continue routine care, patient stable for d/c although baby will have to stay for continued monitoring. Will d/c today, though patient will likely stay with baby in hospital. -Low suspicion for HELLP, symptoms more likely attributed to COVID -Vitals reviewed- HDS, afebrile -Blood type O+, GBS unknown, Rubella immune -Encourage ambulation -Pain control with Motrin, Tylenol PRN -Regular diet -Monitor lochia -Encourage -Hgb 12.7, Plts 105 -F/u in 6 weeks with OB (2) COVID-19: COVID+, symptomatic with cough Hospitalist team consulted, following. Did not recommend any interventions at this time but discussed REGN-COVID treatment as an option. Pt expressed preference against REGN treatment today. <Kary Lynch MD, FACOG - Last Filed: 01/22/21 07:34> (1) Vaginal delivery: (2) COVID-19: Subjective <Deniz Mckeon MD - Last Filed: 01/22/21 07:04> Ambulation: ambulating normally Voiding: no voiding problems Passing Gas:: Yes Diet Tolerance:: regular diet Lochia:: Small Feeding Type:: breast feeding (Expressed breast milk with syringe) Current Pain Level(1-10): 0 Pt doing well, no acute events or new complaints. Baby doing well. Pt has not passed BM yet. Reports cough improved with PRNs. Denies any dyspnea or respiratory distress, no dysphagia or sore throat. Feels better compared to on admission. Pt expressed preference against monoclonal antibody treatment for COVID. Review of Systems Denies fevers/chills. +Improving cough, denies dyspnea. Denies chest pain. Denies breast pain or discharge. Denies dysuria. Denies headache. Physical Exam <Deniz Mckeon MD - Last Filed: 01/22/21 07:04> General: Alert, oriented, no acute distress Cardiac: Regular rate and rhythm, normal S1, S2. No murmurs appreciated. Respiratory: Clear to auscultation b/l with good air flow entry, symmetric chest rise and fall. No wheezes or crackles. No increased work of breathing or accessory muscle use. Abdomen: Soft, nontender, nondistended. Fundus firm and palpable at 2 cm below umbilicus. No guarding or rebound. Skin: No rashes or lesions Extremities: Warm, dry, well-perfused with capillary refill <2s b/l. No lower extremity edema, erythema or swelling. Negative Jayme's sign b/l. Results & Data ([facility]) <Deniz Mckeon MD - Last Filed: 01/22/21 07:04> Vital Signs (Past 12 Hours) Vital Signs Temp Pulse Resp BP Pulse Ox 01/22/21 03:00 36.6 C 82 17 138/90 96 01/21/21 23:25 36.7 C 85 16 143/88 H 96 01/21/21 19:55 36.8 C 85 17 133/89 96 <Kary Lynch MD, FACOG - Last Filed: 01/22/21 07:34> Co-Signing Physician Notes Resident Physician Supervision Note: I interviewed and examined the patient. Discussed with Dr. Mckeon and agree with findings and plan as documented in the note. Any exceptions or clarifications are listed here: [None] Documented By: Kary Lynch MD, FACOG Resident Activity Tracking <Deniz Mckeon MD - Last Filed: 01/22/21 07:04> Resident Involvement: Resident Care Provided Care Provided: OB Delivery
[2021-01-22 06:38] LABS: BUN Creatinine Ratio 11.6 (10-20); Calcium 7.9 mg/dl (8.5-10.1); Creatinine Clr Calc Pharmacy 133.6 ml/min; Est GFR (Non-African American) 120.8 ml/min; Potassium 3.6 mmol/L (3.5-5.1)
[2021-01-22] MEDS ORDERED: NON-FORMULARY MEDICATION (Prenat.Vits,Cal,Min-Iron-Folic tablet) PO SCH (09:00)
--- NOTE | 2021-01-22 09:51 | Hospitalist Progress Note ---
Date of Service January 22, 2021 Assessment & Plan (1) COVID-19: Plan: 30yo s/p at 34+6wga on PPD#1 presents with symptomatic covid infection and thrombocytopenia. Covid-19 Patient tested positive for covid on 01/20 after a 1-2 day history of cough, congestion, and diarrhea Hemodynamically stable, maintaining adequate oxygen saturation on room air Patient currently with mild illness, has not required supplemental oxygen Considered REGN-COV2 administration upon discharge; discussed with patient, who ultimately declined treatment Patient does not meet criteria for prophylactic anticoagulation Medically cleared for discharge Thrombocytopenia Platelets at 100 on admission, fell to 93 prior to delivery; since improved to 111 No signs/symptoms of coagulopathy No intervention indicated at this time Medically cleared for discharge as above state Management per OBGYN Continue PNV, ibuprofen, tylenol, supercream, bowel regimen Code status: full code DVT ppx: not indicated Isolation: airborne Dispo: med/surg tele Medicine will sign off, appreciate the opportunity to care for Ms. Kennedy. Admission and Anticipated Discharge Date Admission Date: January 20, 2021 Supervising Physician Co-Signing Physician Notes discussed with Dr Martinez. pt discharged prior to my being able to see. as above. Subjective Patient seen and evaluated at bedside this morning. No acute events overnight. Patient feels well today and has no complaints. Cough has improved after being given DXM overnight. No new symptoms. Patient decided against applying for regeneron. Patient denies CP, SOB, abdominal pain, nausea, vomiting, lightheadedness, dizziness, and diarrhea. Review of Systems Review of Systems: See HPI Physical Exam Physical Exam: Constitutional: well-appearing, no acute distress HEENT: NCAT, no conjunctival injection CV: regular rhythm, no murmur appreciated, extremities well-perfused, no LE edema Resp: CTABL, no wheezes/rales/rhonchi appreciated, no increased work of breathing GI: soft, minimally tender in suprapubic region Skin: warm, dry, no rash appreciated Neuro: AOx4, no focal neurological deficits appreciated Results & Data Results & Data ([facility]) Vital Signs (Past 12 Hours) Vital Signs Temp Pulse Resp BP Pulse Ox 01/22/21 07:40 36.6 C 84 16 149/99 H 98 01/22/21 03:00 36.6 C 82 17 138/90 96 01/21/21 23:25 36.7 C 85 16 143/88 H 96 Resident Activity Tracking Resident Involvement: Resident Care Provided Care Provided: Adult Hospital Medicine
== END 2021-01-22 19:13 | disposition home or self-care (01) | DRG 805 ==
LOC: OPB 08:47 → 4W 08:48 → 3E 21:55

== ENCOUNTER 2023-03-11 18:13 | Inpatient (IN) ==
[2023-03-11] MEDS ORDERED: OXYTOCIN 30 UNITS/500 ML BAG IV PRN ×2 (18:29→20:43)
[2023-03-11] MEDS ORDERED: LIDOCAINE 1% LOCAL 20 ML VIAL INFIL PRN (18:29)
[2023-03-11] MEDS ORDERED: INFLUENZA VIRUS QUADRIVALENT VACCINE (IIV4) 0.5 ML SYR IM ONE (18:45)
[2023-03-11] MEDS: LACTATED RINGER'S 1,000 ML IV PRN ×2 (18:46→19:40)
[2023-03-11 18:53] LABS: Hematocrit (blood only) 37.9 % (37.0-47.0); Hemoglobin 12.7 g/dl (12.0-16.0); Mean Corpuscular Hemoglobin 29.5 pg (25.0-34.0); Mean Corpuscular Hgb Conc 33.5 g/dL (32.0-36.0); Mean Corpuscular Volume 87.9 fL (80.0-100.0); Mean Platelet Volume 10.4 fL (9.4-12.4); Platelet Count 193 K/uL (130-400); RDW Coefficient of Variation 13.5 % (11.5-14.5); RDW Standard Deviation 42.6 fL (36.4-46.3); Red Blood Count 4.31 M/uL (4.20-5.40); White Blood Count 11.26 K/ul (4.8-10.8)
[2023-03-11] MEDS ORDERED: SODIUM CHLORIDE 0.9% PF INJ 10 ML VIAL ONE (19:11)
[2023-03-11] MEDS ORDERED: ePHEDrine sulfate 50 MG/ML AMP ONE (19:11)
[2023-03-11] MEDS ORDERED: LIDOCAINE 2%/EPINEPHRINE 1:200,000 20 ML PF ONE (19:11)
[2023-03-11] MEDS ORDERED: fentaNYL citrate PF 100 MCG/2 ML VIAL ONE (19:11)
[2023-03-11] MEDS ORDERED: BUPIVACAINE 0.25% PF 30 ML VIAL ONE (19:11)
[2023-03-11] MEDS ORDERED: fentaNYL 2MCG/ML ROPIVACAINE 1.25MG/ML 100 ML BAG EPI ONE (19:12)
[2023-03-11] MEDS ORDERED: BUPIVACAINE 0.25% PF 30 ML VIAL EPI PRN (19:31)
[2023-03-11] MEDS ORDERED: diphenhydrAMINE 50 MG/ML VIAL IV PRN (19:31)
[2023-03-11] MEDS ORDERED: SODIUM CHLORIDE 0.9% PF INJ 10 ML VIAL EPI PRN (19:31)
[2023-03-11] MEDS ORDERED: fentaNYL citrate PF 100 MCG/2 ML VIAL EPI STA (19:31)
[2023-03-11] MEDS ORDERED: NALOXONE HCL 1 MG in SODIUM CHLORIDE 0.9% 1,000 ML IV PRN (19:31)
[2023-03-11] MEDS ORDERED: LIDOCAINE 2%/EPINEPHRINE 1:200,000 20 ML PF EPI STA (19:31)
[2023-03-11] MEDS ORDERED: LIDOCAINE 2% MPF LOCAL 5 ML VIAL EPI PRN (19:31)
[2023-03-11] MEDS ORDERED: ROPIVACAINE 0.5% PF 5 MG/ML 20 ML VIAL EPI PRN (19:31)
[2023-03-11] MEDS ORDERED: NALBUPHINE HCL INJ 10 MG/ML AMP IV PRN (19:31)
[2023-03-11] MEDS ORDERED: NALOXONE HCL 0.4 MG/1 ML VIAL/CARP IV PRN (19:31)
[2023-03-11] MEDS ORDERED: BUPIVACAINE 0.25% PF 30 ML VIAL EPI STA (19:31)
[2023-03-11] MEDS ORDERED: fentaNYL citrate PF 100 MCG/2 ML VIAL EPI PRN (19:31)
[2023-03-11] MEDS ORDERED: fentaNYL 2MCG/ML ROPIVACAINE 1.25MG/ML 100 ML BAG EPI PRN (19:31)
[2023-03-11] MEDS ORDERED: ONDANSETRON INJ 2 MG/ML 2 ML VIAL IV PRN (19:31)
[2023-03-11] MEDS ORDERED: SODIUM CHLORIDE 0.9% PF INJ 10 ML VIAL EPI STA (19:31)
[2023-03-11] MEDS ORDERED: ePHEDrine sulfate 50 MG/ML AMP IV PRN (19:31)
--- NOTE | 2023-03-11 19:31 | Anesthesiology Consultation ---
Date of Service March 11, 2023 Assessment & Plan Chart Review Chart Review: Patient NOT seen in Pre Admission Testing and Acceptable Risk for Labor Epidural Consults Requested none ASA ASA2 Proposed Anesthesia Anesthesia Type: Labor Epidural Risk / Benefits Reviewed With: PT / POA / Parent / Guardian, Accepts Plan and Informed Consent Obtained History Height/Weight Height: 5 ft 7 in Weight: 81.193 kg Allergies Allergy/AdvReac Type Severity Reaction Status Date / Time No Known Drug Allergies Allergy Verified 03/10/23 15:54 Medications Home Medications Medication Instructions Recorded Confirmed Last Taken prenat.vits,zhao,yap-dqof-nkvsv 1 tab PO DAILY 12/18/18 03/10/23 1 Day Ago ~01/19/21 Active Medications Generic Name Dose Route Start Last Admin Trade Name Freq PRN Reason Stop Dose Admin Lactated Ringer's 1,000 mls @ 125 mls/hr 03/11/23 18:29 03/11/23 18:46 Lr IV 03/13/23 18:28 999 mls/hr .Q8H PRN Administration L&D Protocol Protocol Past Medical History Medical History Abnormal biochemical finding on screening of mother, antepartum COVID-19 Dehydration Diarrhea History of migraine History of varicella vaccination LGSIL on Pap smear of cervix Person under investigation for COVID-19 with 34 completed weeks gestation Vaginal delivery Exercise / Class Metabolic Activity II 4-5 Yardwork/Stairs/Walk up hill Past Family History Family History (Updated 08/26/22 @ 11:09 by Adrianne Pérez, HARVEY) Aunt Cervical cancer paternal Mother Thyroid disease Sister Thyroid disease Denies family history of Ovarian cancer Breast cancer Colorectal cancer Past Surgical History Surgical History S/P wisdom tooth extraction Past Anesthesia History No Hx of Anesthesia Complications and No Family Hx of Anesthesia Complications History of PONV No Hx of PONV and No Hx of Motion Sickness Social History Smoking Status: Never smoker Do You Dip or Chew Tobacco: No Hx Alcohol Use: No Hx Substance Use: No substance use type: does not use Physical Exam Vital Signs Last Vital Signs Pulse 91 H 03/11/23 19:29 BP 163/103 H 03/11/23 18:21 Pulse Ox 100 03/11/23 19:29 ENMT Mouth: no dentition abnormality Thyromental Distance: > or= 3.5 Finger Breadths Mallampati Class: II Neck normal visual inspection Respiratory normal respiratory effort Auscultation: lungs clear to auscultation bilaterally Cardiovascular Rate/Rhythm: regular rate and regular rhythm Psychiatric Orientation: alert Testing Laboratory Results 03/11/23 18:38
--- NOTE | 2023-03-11 20:31 | Delivery Summary ---
Vaginal Delivery Summary Date of Service March 11, 2023 Vaginal Delivery Summary Spontaneous vaginal delivery the patient arrived in active labor group B strep negative at term requested epidural after this artificial rupture membranes at 9 cm she delivered shortly thereafter delivering a baby in occiput anterior position clear fluid no nuchal cord baby's head was born and then gentle traction on the baby without difficulty easy delivery no excessive force live vigorous female infant cord clamped and cut cord blood obtained placenta removed with gentle traction IV Pitocin was started uterine tone improved there was no tearing sponge and instrument counts correct estimated blood loss 300 mL [facility] Vaginal Delivery Charge Delivery Type Details:
[2023-03-11] MEDS ORDERED: IBUPROFEN 600 MG TAB PO PRN (20:43)
[2023-03-11] MEDS ORDERED: bisacodyL 10 MG SUPP PR PRN (20:43)
[2023-03-11] MEDS ORDERED: HYDROCORTISONE ACETATE 25 MG SUPP PR PRN (20:43)
[2023-03-11] MEDS ORDERED: ACETAMINOPHEN 325 MG TAB PO PRN (20:43)
[2023-03-11] MEDS ORDERED: BENZOCAINE 20% SPRY 85 APPLN/85 GM CAN EXT PRN (20:43)
[2023-03-11] MEDS ORDERED: DIPHTHERIA/TETANUS/PERTUSSIS Vaccine (Tdap, Age 7+yrs) 0.5mL SYR/VL IM ONE (20:43)
--- NOTE | 2023-03-11 20:48 | Obstetrical Progress Note ---
Date of Service <Johnathan Ramos MD - Last Filed: 03/12/23 07:43> March 11, 2023 Assessment & Plan <Johnathan Ramos MD - Last Filed: 03/12/23 07:43> (1) (spontaneous vaginal delivery): Plan 32 yo , status post on 03/11/23 - Pt doing well clinically. Feels well today. Eating well, voiding well, ambulating well. Pain well controlled with PRN pain meds. - Routine care -- OOB, ambulation, diet progression as tolerated Vital Signs reviewed and WNL. (Tmax at 37.1) except as noted: BP a few high readings post delivery (149/81), similar to one appt in early Oct Patient's BP will be followed today and discharge for later today contingent on those readings. Hemoglobin Reviewed. 12.7 (03/11/23) 11.5 (today). Blood Type: O+, GBS-, Rubella Immune. Encourage ambulation, monitor and control pain with Motrin PRN, resume regular diet, monitor lochia. Breast feeding encouraged. After discharge will have 6 week follow-up with Dr. Barraza. Pt counselled on discharge instructions. <Sarita Barraza MD, FACOG - Last Filed: 03/12/23 07:46> (1) (spontaneous vaginal delivery): Subjective <Johnathan Ramos MD - Last Filed: 03/12/23 07:43> Ambulation: ambulating normally Voiding: no voiding problems Passing Gas:: Yes Diet Tolerance:: regular diet Lochia:: Small (light to moderate) Feeding Type:: breast feeding Current Pain Level(1-10): 2 (cramping pain while ) Constitutional: no fever, no chills or no weakness Eyes: no diplopia, no seeing flashes, no spots in vision or no worsening vision Respiratory: no cough or no dyspnea Cardiovascular: no chest pain or no palpitations Gastrointestinal: no nausea, no vomiting, no constipation (still no BM yet) or no diarrhea/loose stools no RUQ pain (beneath ribs on r. side) Genitourinary (female): no dysuria Musculoskeletal: no myalgia (no calf pain) Neurologic: no tingling or no numbness Physical Exam <Johnathan Ramos MD - Last Filed: 03/12/23 07:43> Constitutional WD/WN, vitals as above Respiratory normal respiratory effort, lungs clear to auscultation Cardiovascular RRR, no murmur, no edema Gastrointestinal (Abdomen) normal bowel sounds, soft, nontender, no hepatosplenomegaly Inspection/Auscultation: abdomen normal to inspection Musculoskeletal Extremities: extremities normal to inspection (no calf pain or tenderness) Neurologic deep tendon reflexes 2+ bilaterally no clonus observed with ankle reflex Results & Data <Johnathan Ramos MD - Last Filed: 03/12/23 07:43> Vital Signs (Past 12 Hours) Vital Signs Temp Pulse Resp BP Pulse Ox 03/11/23 20:39 91 H 137/71 03/11/23 20:36 95 H 132/73 03/11/23 20:24 94 H 03/11/23 20:24 95 H 210/92 H 96 03/11/23 20:19 111 H 97 03/11/23 20:14 128 H 97 03/11/23 20:09 101 H 93 03/11/23 20:04 91 H 96 03/11/23 19:59 106 H 98 03/11/23 19:54 105 H 165/94 H 97 03/11/23 19:51 94 H 160/97 H 03/11/23 19:49 94 H 98 03/11/23 19:48 93 H 154/90 H 03/11/23 19:45 90 165/102 H 03/11/23 19:44 79 100 03/11/23 19:42 93 H 168/85 H 03/11/23 19:39 78 160/85 H 100 03/11/23 19:34 86 100 03/11/23 19:31 92 H 178/84 H 03/11/23 19:26 20 03/11/23 19:26 37.1 C 20 03/11/23 19:29 91 H 100 03/11/23 18:21 91 H 163/103 H <Sarita Barraza MD, FACOG - Last Filed: 03/12/23 07:46> Co-Signing Physician Notes Resident Physician Supervision Note: I was present with [Claudy] during the history and exam. I discussed the case with the resident and agree with the findings and plan as documented in the note. Any exceptions or clarifications are listed here: [None] Documented By: Sarita Barraza MD, FACOG
--- NOTE | 2023-03-11 21:01 | Anesthesia Procedure Note ---
Date of Service March 11, 2023 Anesthesia Post Epidural Note Vital Signs Vital Signs: Temp Pulse Resp BP Pulse Ox 37.1 C 78 20 136/78 96 03/11/23 19:26 03/11/23 20:54 03/11/23 19:26 03/11/23 20:54 03/11/23 20:24 Notes Mental Status: alert / awake / arousable Nausea / Vomiting: adequately controlled Pain: adequately controlled Airway Patency, RR, SpO2: stable & adequate BP & HR: stable & adequate Hydration State: stable & adequate Neuraxial Anesthesia: was administered and sensory block is resolving Anesthetic Complications: no major complications apparent and Pt Satisfied with anesthetic care Epidural: Removed without complications and With tip intact
[2023-03-12 06:53] LABS: Hematocrit (blood only) 34.2 % (37.0-47.0); Hemoglobin 11.5 g/dl (12.0-16.0); Mean Corpuscular Hemoglobin 29.5 pg (25.0-34.0); Mean Corpuscular Hgb Conc 33.6 g/dL (32.0-36.0); Mean Corpuscular Volume 87.7 fL (80.0-100.0); Mean Platelet Volume 10.8 fL (9.4-12.4); Platelet Count 170 K/uL (130-400); RDW Coefficient of Variation 13.4 % (11.5-14.5); RDW Standard Deviation 42.2 fL (36.4-46.3); White Blood Count 13.16 K/ul (4.8-10.8)
[2023-03-12] MEDS ORDERED: PRENATAL VITAMIN 1 TAB PO SCH (08:00)
[2023-03-12] MEDS: DOCUSATE SODIUM 100 MG CAP PO SCH ×2 (09:13→20:43)
[2023-03-12 09:53] VITALS: O2SAT 98
[2023-03-12 12:57] VITALS: RESP 16
[2023-03-12] MEDS ORDERED: LABETALOL HCL 200 MG TAB PO STA (13:39)
--- NOTE | 2023-03-12 18:35 | Communication Note ---
Date of Service: March 12, 2023 received info from nurse that pt bp this pm was 122/80 and then 143/93. This was after 200mg labetalol dose this afternoon. no adame or visual change, no edema or pain. she wants to go home. ok to do so, will send script. did offer her to stay for more monitoring but she declines. wants to go home. needs appt by olga in office for bp check.
[2023-03-12 19:50] VITALS: TEMP 98.2
[2023-03-12 19:54] VITALS: BP 122/80; PULSE 84
[2023-03-12] MEDS ORDERED: bisacodyL 5 MG TABEC PO SCH (20:00)
[2023-03-12] MEDS ORDERED: LABETALOL HCL 200 MG TAB PO SCH (21:00)
== END 2023-03-12 20:21 | disposition home or self-care (01) | DRG 807 ==
LOC: OPB 18:13 → 4S1 18:14 → 4E2 23:35
DX: R03.0 Elevated blood-pressure reading, without diagnosis of hypertension; Z37.0 Single live birth; Z3A.39 39 weeks gestation of pregnancy; O16.5 Unspecified maternal hypertension, complicating the puerperium